=== PATIENT | male | born 1960 | race Caucasian/White ===

== ENCOUNTER 2021-04-06 15:49 | Observation (INO) ==
[2021-04-06] MEDS ORDERED: SODIUM CHLORIDE 0.9% 1000ML 1,000 ML IV ONE ×2 (15:58→16:44)
--- NOTE | 2021-04-06 16:02 | Emergency Department Note ---
Impression & Plan Atrial fibrillation with rapid ventricular response, 2019 novel coronavirus- infected pneumonia (NCIP), ACACIA (acute kidney injury), Acute dehydration, Hypokalemia, Diarrhea ED Provider Note NAME: EDMAR HINOJOSA AGE: 60 SEX: M : 1960 ARRIVES VIA: Ambulance INFORMANT: Patient, ED PROVIDER(S): Josh Beasley DO CHIEF COMPLAINT: Shortness of breath HPI: The patient is a 60-year-old male who presented to the emergency department for an evaluation of shortness of breath. The patient was diagnosed with COVID- 19 9 days ago. He states his symptoms started 10 days ago. He started having cough and fever. He has been taking [id number] medication with only minimal relief of his symptoms. He does have a pulse ox at home that he has been monitoring his pulse ox with. This was noted to be low today and was reportedly in the 80s. The patient states he has very severe symptoms with any exertion. He denies having any nausea or vomiting but has had loose bowel movements. He denies having any rectal bleeding or black bowel movements. He denies having any abdominal pain. He does complain of muscle pain including back pain and leg pain. He also complains of a headache. His is also at home with similar symptoms. He was vaccinated against COVID-19 in the spring. He was not seen by his primary care physician. His symptoms became significantly worse so he presented to the emergency department. Prior to arrival he was noted to have significant tachycardia as well as diaphoresis. ROS: See above HPI for pertinent positives & negatives. A total of 10 systems reviewed and were otherwise negative. PAST MEDICAL HISTORY: See Below PAST SURGICAL HISTORY: See Below FAMILY HISTORY: See Below SOCIAL HISTORY: See Below HOME MEDICATIONS: See Below ALLERGIES: See Below VITALS: See Below PHYSICAL EXAMINATION: GENERAL: Patient is awake and alert. The patient somewhat anxious appearing. He is diaphoretic. EYES: The conjunctivae are clear. The pupils are round and reactive. EARS, NOSE, MOUTH AND THROAT: The nose is without any evidence of any deformity. NECK: The neck is nontender and supple. RESPIRATORY: Shallow respirations were noted. There was no conversational dy spnea. CARDIOVASCULAR: Tachycardic rate with regular rhythm was noted. There was no definite murmur. GASTROINTESTINAL: The abdomen is soft. Abdomen is nontender. MUSCULOSKELETAL/EXTREMITIES: There is no evidence of gross deformity full range of motion is noted in the hips and shoulders. SKIN: Skin was cool and diaphoretic. There was no significant pedal edema. NEUROLOGIC: Patient is awake alert and oriented x3. MEDICAL DECISION MAKING: The patient is a 60-year-old male who presented to the emergency department for an evaluation of difficulty breathing. The patient was recently diagnosed with COVID-19. Over the course the last few weeks he has had diarrhea and decreased p.o. intake. The patient was brought to the emergency department by ambulance. The patient was having rapid atrial fibrillation. The patient was treated with IV fluids in the emergency department. He was nonhypoxic on room air. Atrial fibrillation would be a new diagnosis for this patient. I discussed the patient's laboratory and radiographic studies with him. He was also treated with potassium replacement. Because of his findings [facility] have agreed to evaluate the patient in the emergency department for further management and disposition. Triage Nursing notes reviewed. Prior medical records reviewed Vital Signs: reviewed and remarkable for no significant abnormalities Differential diagnosis: Reactive airway disease, pneumonia, pneumothorax, COPD, CHF, infections, cardiac ischemia, pulmonary embolism, musculoskeletal, gastrointestinal, as well as other pathologies. ER treatment provided: See below Diagnostics interpreted by me: ECG: EKG was obtained in the emergency department. My interpretation is atrial fibrillation at 110 bpm. PVCs were noted. There was no acute ST segment abnormalities noted. This was compared to a tracing from January 102014. Atrial fibrillation has replaced sinus rhythm. A second EKG was obtained in the emergency department. My interpretation is atrial fibrillation at 124 bpm. PVCs were noted. There was no significant change compared to the earlier tracing. Cardiac Monitoring: An order was placed for continuous cardiac monitoring. The monitor shows a rate of 73 bpm with atrial fibrillation rhythm. Laboratory studies: As stated above and show below. Imaging studies: See below Consultation(s): [id number]: I discussed this case with Dr. Etienne who [facility]. Past Med/Surg History Medical History CAD (coronary artery disease) OTHER THAN NSTEMI IN 12/2013 THIS IS NONOBSTRUCTIVE AND CLINICALLY STABLE WITHOUT ANGINA. History of anesthesia reaction during nerve block for L shoulder sx "something went wrong and they got my vocal cords and I couldnt talk for 3 days" Hypertension Myocardial Infarction NSTEMI - 01/24/14 On anticoagulant therapy plavix daily Surgical History History of appendectomy History of cardiac cath 2013 with stent--JONO to the LAD (01/24/14) - FOLLOWS W/ DR. MONDRAGON History of cholecystectomy History of esophagogastroduodenoscopy (EGD) History of repair of left rotator cuff Family History Father Abdominal aortic aneurysm Cardiac disorder Hypertension Myocardial infarction Aunt Breast cancer Other No family history of adverse response to anesthesia Denies family history of Ovarian cancer Prostate cancer Colorectal cancer Social History Smoking Status: Unknown if ever smoked Second Hand Exposure: Yes (father smoked); Hx Alcohol Use: Yes Alcohol type: beer Hx Substance Use: No Preferred Language: Irish Communication Ability: Effective Membership Solicitor Required: No Beliefs That Will Affect Care: None Current Living Situation: Spouse Feels Safe at Home: Yes Assistive Devices: None Allergies Allergies Allergy/AdvReac Type Severity Reaction Status Date / Time No Known Allergies Allergy Verified 04/06/21 17:25 Home Meds Home Medications Medication Instructions Recorded Confirmed acetaminophen 500 mg tablet 1,000 mg PO Q6H PRN 08/18/18 04/06/21 (Tylenol Extra Strength) atorvastatin 80 mg tablet 80 mg PO QAM 08/18/18 04/06/21 clopidogrel 75 mg tablet 75 mg PO QAM 08/18/18 04/06/21 metoprolol succinate 25 mg 25 mg PO QAM 08/18/18 04/06/21 tablet,extended release 24 hr ezetimibe 10 mg tablet (Zetia) 10 mg PO DAILY 12/24/19 04/06/21 aspirin 81 mg tablet,delayed 81 mg PO DAILY 04/06/21 04/06/21 release Previous Rx's Medication Instructions Recorded lisinopril 20 1 tab PO DAILY #30 tab 09/24/20 mg-hydrochlorothiazide 25 mg tablet Results & Data (ED) Vital Signs Vital Signs - 24 hr 04/06/21 16:23 04/06/21 17:30 04/06/21 17:43 Temperature 36.9 C 36.9 C Temperature Source Oral Oral Pulse Rate 113 H Pulse Rate [Left Finger] 113 H 95 H Pulse Rate from SpO2 Sensor Pulse Rhythm [Left Finger] Regular Pulse Strength [Left Finger] Normal Respiratory Rate 20 20 19 Respiratory Effort / Characteristics Non-Labored Non-Labored Non-Labored Respiratory Depth Normal Normal Respiratory Pattern Regular Blood Pressure 94/65 L 89/57 L Blood Pressure [Right Arm] 94/65 L 94/65 L Blood Pressure Mean 74 67 Blood Pressure Mean [Right Arm] 74 74 Blood Pressure Position Lying Blood Pressure Position [Right Arm] Lying Pulse Oximetry 95 95 95 Oxygen Delivery Method Room Air Room Air Room Air Oxygen Flow Rate 95 Sepsis Recent Fever Within 48 Hours Yes Sepsis New/Unexplained Change in Mental Status No Sepsis Action Taken by Nursing Physician Notified 04/06/21 17:45 04/06/21 18:00 04/06/21 18:15 Temperature Temperature Source Pulse Rate 92 H 90 Pulse Rate [Left Finger] Pulse Rate from SpO2 Sensor 88 97 H 95 H Pulse Rhythm [Left Finger] Pulse Strength [Left Finger] Respiratory Rate 20 22 24 Respiratory Effort / Characteristics Non-Labored Respiratory Depth Respiratory Pattern Blood Pressure Blood Pressure [Right Arm] Blood Pressure Mean Blood Pressure Mean [Right Arm] Blood Pressure Position Blood Pressure Position [Right Arm] Pulse Oximetry 97 91 98 Oxygen Delivery Method Room Air Oxygen Flow Rate Sepsis Recent Fever Within 48 Hours Sepsis New/Unexplained Change in Mental Status Sepsis Action Taken by Nursing 04/06/21 18:30 04/06/21 18:45 04/06/21 19:00 Temperature Temperature Source Pulse Rate 84 89 89 Pulse Rate [Left Finger] Pulse Rate from SpO2 Sensor 82 94 H 94 H Pulse Rhythm [Left Finger] Pulse Strength [Left Finger] Respiratory Rate 21 25 H 25 H Respiratory Effort / Characteristics Respiratory Depth Respiratory Pattern Blood Pressure 123/65 Blood Pressure [Right Arm] Blood Pressure Mean 84 Blood Pressure Mean [Right Arm] Blood Pressure Position Blood Pressure Position [Right Arm] Pulse Oximetry 95 98 95 Oxygen Delivery Method Oxygen Flow Rate Sepsis Recent Fever Within 48 Hours Sepsis New/Unexplained Change in Mental Status Sepsis Action Taken by Nursing 04/06/21 19:15 04/06/21 19:30 04/06/21 19:45 Temperature Temperature Source Pulse Rate 132 H 106 H 95 H Pulse Rate [Left Finger] Pulse Rate from SpO2 Sensor 92 H 99 H 91 H Pulse Rhythm [Left Finger] Pulse Strength [Left Finger] Respiratory Rate 29 H 23 19 Respiratory Effort / Characteristics Respiratory Depth Respiratory Pattern Blood Pressure Blood Pressure [Right Arm] Blood Pressure Mean Blood Pressure Mean [Right Arm] Blood Pressure Position Blood Pressure Position [Right Arm] Pulse Oximetry 94 96 95 Oxygen Delivery Method Oxygen Flow Rate Sepsis Recent Fever Within 48 Hours Sepsis New/Unexplained Change in Mental Status Sepsis Action Taken by Nursing 04/06/21 21:00 04/06/21 21:04 04/06/21 21:15 Temperature Temperature Source Pulse Rate 83 73 Pulse Rate [Left Finger] Pulse Rate from SpO2 Sensor 80 77 Pulse Rhythm [Left Finger] Pulse Strength [Left Finger] Respiratory Rate 26 H Respiratory Effort / Characteristics Non-Labored Respiratory Depth Respiratory Pattern Blood Pressure 112/60 Blood Pressure [Right Arm] Blood Pressure Mean 77 Blood Pressure Mean [Right Arm] Blood Pressure Position Blood Pressure Position [Right Arm] Pulse Oximetry 95 96 96 Oxygen Delivery Method Room Air Oxygen Flow Rate Sepsis Recent Fever Within 48 Hours Sepsis New/Unexplained Change in Mental Status Sepsis Action Taken by Care Home Medications Current Medication List: was personally reviewed by me Laboratory Data Attestation: I reviewed the patient's lab results. Result diagrams: 04/06/21 16:05 04/06/21 16:05 Lab Results 04/06/21 04/06/21 04/06/21 Range/Units 15:50 15:50 16:05 WBC 11.73 H (4.8-10.8) K/uL RBC 6.24 H (4.7-6.1) M/uL Hgb 18.2 H (14.0-18.0) g/dL Hct 51.0 (42-52) % MCV 81.7 (80-100) fL MCH 29.2 (25-34) pg MCHC 35.7 (32-36) g/dL RDW Std Deviation 40.8 (36.4-46.3) fL RDW Coeff of Akanksha 13.7 (11.5-14.5) % Plt Count 303 (130-400) K/uL MPV 12.2 H (7.4-10.4) fL Immature Gran % (Auto) 0.3 % Neut % (Auto) 81.1 % Lymph % (Auto) 10.1 % [place] % (Auto) 8.1 % Eos % (Auto) 0.3 % Baso % (Auto) 0.1 % Neut # (Auto) 9.51 H (1.4-6.5) K/uL Lymph # (Auto) 1.18 L (1.2-3.4) K/uL [place] # (Auto) 0.95 H (0.11-0.59) K/uL Eos # (Auto) 0.04 (0-0.5) K/uL Baso # (Auto) 0.01 (0-0.2) K/uL Immature Gran # (Auto) 0.04 H (0.00-0.02) K/uL PT (9.0-12.0) Seconds INR (0.9-1.1) APTT (21.0-31.0) Seconds PTT Ratio D-Dimer (0-500) ug/L FEU Sodium (136-145) mmol/L Potassium (3.5-5.1) mmol/L Chloride (98-107) mmol/L Carbon Dioxide (21-32) mmol/L Anion Gap (3-11) BUN (7-18) mg/dl Creatinine (0.6-1.4) mg/dl Est Cr Clr Drug Dosing ml/min Est GFR ( Amer) ml/min Est GFR (Non-Af Amer) ml/min BUN/Creatinine Ratio (10-20) Glucose (70-99) mg/dl Lactate (0.4-2.0) mmol/L Calcium (8.5-10.1) mg/dl Magnesium (1.8-2.4) mg/dl Total Bilirubin (0.2-1) mg/dl AST (15-37) U/L ALT (12-78) U/L Alkaline Phosphatase (45-117) U/L Troponin I (0-0.045) ng/ml Total Protein (6.4-8.2) gm/dl Albumin (3.4-5.0) gm/dl Globulin (2.5-4.0) gm/dl Albumin/Globulin Ratio (0.9-2) Procalcitonin (0-0.5) ng/ml Urine Color Urine Appearance (Clear) Urine pH (4.5-7.5) Ur Specific [place] (1.000-1.030) Urine Protein (Negative) Urine Glucose (UA) (Negative) Urine Ketones (Negative) Urine Blood (Negative) Urine Nitrite (Negative) Urine Bilirubin (Negative) Urine Urobilinogen (Negative) Ur Leukocyte Esterase (Negative) COVID-19 Eval Order Covid19 at [facility] SARS-CoV-2 (PCR) POSITIVE A* (Negative) 04/06/21 04/06/21 04/06/21 Range/Units 16:05 16:05 16:05 WBC (4.8-10.8) K/uL RBC (4.7-6.1) M/uL Hgb (14.0-18.0) g/dL Hct (42-52) % MCV (80-100) fL MCH (25-34) pg MCHC (32-36) g/dL RDW Std Deviation (36.4-46.3) fL RDW Coeff of Akanksha (11.5-14.5) % Plt Count (130-400) K/uL MPV (7.4-10.4) fL Immature Gran % (Auto) % Neut % (Auto) % Lymph % (Auto) % [place] % (Auto) % Eos % (Auto) % Baso % (Auto) % Neut # (Auto) (1.4-6.5) K/uL Lymph # (Auto) (1.2-3.4) K/uL [place] # (Auto) (0.11-0.59) K/uL Eos # (Auto) (0-0.5) K/uL Baso # (Auto) (0-0.2) K/uL Immature Gran # (Auto) (0.00-0.02) K/uL PT 10.5 (9.0-12.0) Seconds INR 1.0 (0.9-1.1) APTT 26.5 (21.0-31.0) Seconds PTT Ratio 1.0 D-Dimer 970 H* (0-500) ug/L FEU Sodium 134 L (136-145) mmol/L Potassium 2.9 L (3.5-5.1) mmol/L Chloride 98 (98-107) mmol/L Carbon Dioxide 22 (21-32) mmol/L Anion Gap 14.0 H (3-11) BUN 31 H (7-18) mg/dl Creatinine 1.65 H (0.6-1.4) mg/dl Est Cr Clr Drug Dosing 53.4 ml/min Est GFR ( Amer) 51.5 ml/min Est GFR (Non-Af Amer) 44.5 ml/min BUN/Creatinine Ratio 19.0 (10-20) Glucose 129 H (70-99) mg/dl Lactate (0.4-2.0) mmol/L Calcium 8.8 (8.5-10.1) mg/dl Magnesium 2.2 (1.8-2.4) mg/dl Total Bilirubin 1.6 H (0.2-1) mg/dl AST 30 (15-37) U/L ALT 57 (12-78) U/L Alkaline Phosphatase 114 (45-117) U/L Troponin I < 0.015 (0-0.045) ng/ml Total Protein 8.0 (6.4-8.2) gm/dl Albumin 3.6 (3.4-5.0) gm/dl Globulin 4.4 H (2.5-4.0) gm/dl Albumin/Globulin Ratio 0.8 L (0.9-2) Procalcitonin < 0.05 (0-0.5) ng/ml Urine Color Urine Appearance (Clear) Urine pH (4.5-7.5) Ur Specific [place] (1.000-1.030) Urine Protein (Negative) Urine Glucose (UA) (Negative) Urine Ketones (Negative) Urine Blood (Negative) Urine Nitrite (Negative) Urine Bilirubin (Negative) Urine Urobilinogen (Negative) Ur Leukocyte Esterase (Negative) COVID-19 Eval Order SARS-CoV-2 (PCR) (Negative) 04/06/21 04/06/21 04/06/21 Range/Units 16:29 18:21 21:09 WBC (4.8-10.8) K/uL RBC (4.7-6.1) M/uL Hgb (14.0-18.0) g/dL Hct (42-52) % MCV (80-100) fL MCH (25-34) pg MCHC (32-36) g/dL RDW Std Deviation (36.4-46.3) fL RDW Coeff of Akanksha (11.5-14.5) % Plt Count (130-400) K/uL MPV (7.4-10.4) fL Immature Gran % (Auto) % Neut % (Auto) % Lymph % (Auto) % [place] % (Auto) % Eos % (Auto) % Baso % (Auto) % Neut # (Auto) (1.4-6.5) K/uL Lymph # (Auto) (1.2-3.4) K/uL [place] # (Auto) (0.11-0.59) K/uL Eos # (Auto) (0-0.5) K/uL Baso # (Auto) (0-0.2) K/uL Immature Gran # (Auto) (0.00-0.02) K/uL PT (9.0-12.0) Seconds INR (0.9-1.1) APTT (21.0-31.0) Seconds PTT Ratio D-Dimer (0-500) ug/L FEU Sodium (136-145) mmol/L Potassium (3.5-5.1) mmol/L Chloride (98-107) mmol/L Carbon Dioxide (21-32) mmol/L Anion Gap (3-11) BUN (7-18) mg/dl Creatinine (0.6-1.4) mg/dl Est Cr Clr Drug Dosing ml/min Est GFR ( Amer) ml/min Est GFR (Non-Af Amer) ml/min BUN/Creatinine Ratio (10-20) Glucose (70-99) mg/dl Lactate 2.3 H* 1.3 (0.4-2.0) mmol/L Calcium (8.5-10.1) mg/dl Magnesium (1.8-2.4) mg/dl Total Bilirubin (0.2-1) mg/dl AST (15-37) U/L ALT (12-78) U/L Alkaline Phosphatase (45-117) U/L Troponin I (0-0.045) ng/ml Total Protein (6.4-8.2) gm/dl Albumin (3.4-5.0) gm/dl Globulin (2.5-4.0) gm/dl Albumin/Globulin Ratio (0.9-2) Procalcitonin (0-0.5) ng/ml Urine Color Yellow Urine Appearance Clear (Clear) Urine pH 5.5 (4.5-7.5) Ur Specific [place] 1.012 (1.000-1.030) Urine Protein Negative (Negative) Urine Glucose (UA) Negative (Negative) Urine Ketones Trace H (Negative) Urine Blood Negative (Negative) Urine Nitrite Negative (Negative) Urine Bilirubin Negative (Negative) Urine Urobilinogen Negative (Negative) Ur Leukocyte Esterase Negative (Negative) COVID-19 Eval Order SARS-CoV-2 (PCR) (Negative) Administered Medications Discontinued Medications Sodium Chloride (Nss 1000ml) 1,000 mls @ 999 mls/hr IV .Q1H1M ONE Stop: 04/06/21 16:58 Last Infusion: 04/06/21 17:27 Dose: 0 mls/hr Documented by: [id number] Admin: 04/06/21 15:45 Dose: 999 mls/hr Documented by: [id number] Sodium Chloride (Nss 1000ml) 1,000 mls @ 999 mls/hr IV .Q1H1M ONE Stop: 04/06/21 17:44 Last Infusion: 04/06/21 18:40 Dose: 0 mls/hr Documented by: [id number] Admin: 04/06/21 17:30 Dose: 999 mls/hr Documented by: [id number] Potassium Chloride (K Won / Wtr) 10 meq in 100 mls @ 100 mls/hr IV Q1H RADHA Stop: 04/06/21 19:44 Last Admin: 04/06/21 19:04 Dose: Not Given Documented by: [id number] Admin: 04/06/21 18:02 Dose: 100 mls/hr Documented by: [id number] Potassium Chloride (Potassium Chloride 10 Meq Tabcr) 20 meq PO NOW STA Stop: 04/06/21 17:35 Last Admin: 04/06/21 17:59 Dose: 20 meq Documented by: [id number] Potassium Chloride (Potassium Chloride Crtab 20 Meq Tabcr) 40 meq PO NOW STA Stop: 04/06/21 19:13 Last Admin: 04/06/21 19:31 Dose: 40 meq Documented by: [id number] Imaging Data Radiologist's Impression: Chest X-Ray 04/06/21 15:58 SINGLE VIEW CHEST CLINICAL HISTORY: Sepsis. FINDINGS: An AP, portable, upright chest radiograph is compared to study dated 01/10/2015 and correlated with chest CT dated 07/04/2007. The cardiomediastinal silhouette is unremarkable. Subtle airspace opacities are seen in the left mid to lower lung. No large pleural effusion or pneumothorax Is seen. The bony thorax is grossly intact. Postoperative change is noted in the left humeral head. IMPRESSION: Subtle airspace opacities are seen in the left mid to lower lung. Correlate clinically for evidence of a mild infectious/inflammatory pneumonitis. ACT 112: Negative or not required by law. Electronically signed by: Juan Luis Palmer M.D. 04/06/2021 4:51 PM Discharge Plan Visit Data Chief Complaint: Shortness of Breath/Dyspnea Stated Complaint: ILLNESS ED Provider: Josh Beasley Discharge Problem: Atrial fibrillation with rapid ventricular response, 2019 novel coronavirus- infected pneumonia (NCIP), ACACIA (acute kidney injury), Acute dehydration, Hypokalemia, Diarrhea Patient Disposition: Being Evaluated by Hospitalist Forms Stand Alone Forms: [facility] Prescriptions Prescriptions: No Action ezetimibe [Zetia] 10 mg tablet 10 mg PO DAILY RF: 0 lisinopril-hydrochlorothiazide 20-25 mg tablet 1 tab PO DAILY Qty: 30 RF: 6 atorvastatin 80 mg Tablet 80 mg PO QAM RF: 0 clopidogrel 75 mg Tablet 75 mg PO QAM RF: 0 metoprolol succinate 25 mg Tablet Extended Release 24 Hr 25 mg PO QAM RF: 0 acetaminophen [Tylenol Extra Strength] 500 mg Tablet 1,000 mg PO Q6H PRN (Reason: Pain) RF: 0 aspirin 81 mg Tablet,Delayed Release (Dr/Ec) 81 mg PO DAILY RF: 0 Referrals Referrals: Emigdio Longoria MD [Primary Care Provider] -
[2021-04-06 16:17] LABS: Basophils # (auto) 0.01 K/uL (0-0.2); Basophils % (auto) 0.1 %; Eosinophils # (auto) 0.04 K/uL (0-0.5); Eosinophils % (auto) 0.3 %; Hemoglobin 18.2 g/dL (14.0-18.0); Immature Granulocytes # (auto) 0.04 K/uL (0.00-0.02); Immature Granulocytes % (auto) 0.3 %; Lymphocytes # (auto) 1.18 K/uL (1.2-3.4); Lymphocytes % (auto) 10.1 %; Mean Corpuscular Hemoglobin 29.2 pg (25-34); Mean Corpuscular Hgb Conc 35.7 g/dL (32-36); Mean Corpuscular Volume 81.7 fL (80-100); Mean Platelet Volume 12.2 fL (7.4-10.4); Monocytes # (auto) 0.95 K/uL (0.11-0.59); Monocytes % (auto) 8.1 %; Neutrophils # (auto) 9.51 K/uL (1.4-6.5); Neutrophils % (auto) 81.1 %; Platelet Count 303 K/uL (130-400); RDW Coefficient of Variation 13.7 % (11.5-14.5); RDW Standard Deviation 40.8 fL (36.4-46.3); Red Blood Count 6.24 M/uL (4.7-6.1); White Blood Count 11.73 K/uL (4.8-10.8)
[2021-04-06 16:36] LABS: Partial Thromboplastin Time 26.5 Seconds (21.0-31.0); Prothrombin Time 10.5 Seconds (9.0-12.0)
[2021-04-06 16:42] LABS: Alanine Aminotransferase 57 U/L (12-78); Albumin Level 3.6 gm/dl (3.4-5.0); Aspartate Aminotransferase 30 U/L (15-37); Blood Urea Nitrogen 31 mg/dl (7-18); Calcium 8.8 mg/dl (8.5-10.1); Carbon Dioxide 22 mmol/L (21-32); Chloride 98 mmol/L (98-107); Creatinine Clr Calc Pharmacy 53.4 ml/min; Est GFR (African American) 51.5 ml/min; Est GFR (Non-African American) 44.5 ml/min; Glucose 129 mg/dl (70-99); Magnesium 2.2 mg/dl (1.8-2.4); Potassium 2.9 mmol/L (3.5-5.1); Sodium 134 mmol/L (136-145)
[2021-04-06 16:43] LABS: D Dimer 970 ug/L FEU (0-500)
[2021-04-06 16:46] LABS: Albumin Globulin Ratio 0.8 (0.9-2); Alkaline Phosphatase 114 U/L (45-117); Bilirubin,Total 1.6 mg/dl (0.2-1); Globulin 4.4 gm/dl (2.5-4.0); Troponin I < 0.015 ng/ml (0-0.045)
--- NOTE | 2021-04-06 16:53 | XRay Report ---
SINGLE VIEW CHEST CLINICAL HISTORY: Sepsis. FINDINGS: An AP, portable, upright chest radiograph is compared to study dated 01/10/2015 and correlat ed with chest CT dated 07/04/2007. The cardiomediastinal silhouette is unremarkable. Subtle airspace op acities are seen in the left mid to lower lung. No large pleural effusion or pneumothorax Is seen. Th e bony thorax is grossly intact. Postoperative change is noted in the left humeral head. IMPRESSION: Subtle airspace opacities are seen in the left mid to lower lung. Correlate clinically fo r evidence of a mild infectious/inflammatory pneumonitis. ACT 112: Negative or not required by law. Electronically signed by: Juan Luis Palmer M.D. 04/06/2021 4:51 PM
[2021-04-06] MEDS ORDERED: POTASSIUM CHLORIDE 10 MEQ TABCR PO STA (17:34)
[2021-04-06] MEDS: POTASSIUM CHLORIDE / WTR 10 MEQ/100 ML PLCT IV SCH ×2 (18:02→19:04)
--- NOTE | 2021-04-06 19:09 | History & Physical Report ---
Date of Service April 06, 2021 Assessment & Plan (1) 2019 novel coronavirus-infected pneumonia (NCIP): Plan: Likely underlying pathology for patient's general illness and other issues described above No indication for steroid treatment patient is not hypoxic Out of window for remdesivir treatment Supportive care as detailed below (2) Atrial fibrillation with rapid ventricular response: Plan: This is new finding for the patient Patient has a [id number] score of 1, does not require full dose anticoagulation at this time. Will give DVT prophylaxis with heparin Is rate controlled in the 90s, continue to monitor Check 2D echo We will ask cardiology to evaluate for further recommendations (3) Acute dehydration: Plan: Patient was given 2 L and normal saline in the ER, will continue this for now with NS +20 KCl Monitor creatinine and hemoglobin, both elevated likely secondary to the above (4) ACACIA (acute kidney injury): Plan: Creatinine is 1.65 which is elevated for this patient, likely secondary to dehydration Continue to monitor with hydration (5) Hypokalemia: Plan: Patient was only able to tolerate half a K rider IV due to the burning He was given oral potassium, will give additional doses along with some potassium and IV fluids Continue to monitor recheck in the morning dose further as needed (6) CAD (coronary artery disease): Plan: Continue outpatient medications as detailed with the exception of lisinopril/hydrochlorothiazide On atorvastatin and Zetia Plavix with low-dose aspirin (7) Hypertension: Plan: Blood pressure medications as noted above History of Present Illness Chief Complaint: General illness Primary Care Provider: Emigdio Longoria MD This is a 60-year-old male with past medical history of hypercholesterolemia, hypertension,, moderate multivessel CAD seen on cath 12/26/2019 that presents today complaining of feeling of general illness. Patient is a decent historian. Patient tells me he was diagnosed with Covid about 10 days ago after coming to contact with family members who are experiencing symptoms. He was tested positive after getting a rapid test of the pharmacy. He had called his physician at that time but was told there was little that can be done as he was not having significant shortness of breath or other symptoms. However, he felt generally unwell. He is extremely weak and had a mild loose cough. He tells me he was having significant fevers and diaphoresis. He was also noticing anorexia and little p.o. intake of both solids and liquids. He felt the symptoms worsening which is what prompted him to seek medical attention today. On evaluation today, he was found to have no respiratory distress and his O2 sat was 99% on room air when I arrived. His other vitals were acceptable with good blood pressure. Of note, patient had atrial fibrillation with a rate in the 90s. He tells me he has no previous history of this. When asked, he denies chest pain, palpitations. Plan is to admit the patient for further treatment of Covid, atrial fibrillation, and dehydration. Allergies Allergy/AdvReac Type Severity Reaction Status Date / Time No Known Allergies Allergy Verified 04/06/21 17:25 Home Medications Medication Instructions Recorded Confirmed Type acetaminophen 500 mg tablet 1,000 mg PO Q6H PRN 08/18/18 04/06/21 History (Tylenol Extra Strength) atorvastatin 80 mg tablet 80 mg PO QAM 08/18/18 04/06/21 History clopidogrel 75 mg tablet 75 mg PO QAM 08/18/18 04/06/21 History metoprolol succinate 25 mg 25 mg PO QAM 08/18/18 04/06/21 History tablet,extended release 24 hr ezetimibe 10 mg tablet (Zetia) 10 mg PO DAILY 12/24/19 04/06/21 History lisinopril 20 1 tab PO DAILY #30 tab 09/24/20 04/06/21 Rx mg-hydrochlorothiazide 25 mg tablet aspirin 81 mg tablet,delayed 81 mg PO DAILY 04/06/21 04/06/21 History release Past Med/Surg History Medical History CAD (coronary artery disease) OTHER THAN NSTEMI IN 12/2013 THIS IS NONOBSTRUCTIVE AND CLINICALLY STABLE WITHOUT ANGINA. History of anesthesia reaction during nerve block for L shoulder sx "something went wrong and they got my vocal cords and I couldnt talk for 3 days" Hypertension Myocardial Infarction NSTEMI - 01/24/14 On anticoagulant therapy plavix daily Surgical History History of appendectomy History of cardiac cath 2013 with stent--JONO to the [facility]AD (01/24/14) - FOLLOWS W/ DR. KOPINSKI History of cholecystectomy History of esophagogastroduodenoscopy (EGD) History of repair of left rotator cuff Family History Father Abdominal aortic aneurysm Cardiac disorder Hypertension Myocardial infarction Aunt Breast cancer Other No family history of adverse response to anesthesia Denies family history of Ovarian cancer Prostate cancer Colorectal cancer Social History Smoking Status: Unknown if ever smoked Second Hand Exposure: Yes (father smoked); Hx Alcohol Use: Yes Alcohol type: beer Hx Substance Use: No Preferred Language: Faroese Communication Ability: Effective Carpenter Railcar Required: No Beliefs That Will Affect Care: None Current Living Situation: Spouse Feels Safe at Home: Yes Assistive Devices: None Review of Systems Constitutional: + fever, + chills, + malaise, + weakness and + anorexia; no weight loss and no weight gain Eyes: as per Subjective / HPI Respiratory: + cough and + chest congestion; no dyspnea, no dyspnea on exertion, no hemoptysis and no wheezing Cardiovascular: no chest pain, no orthopnea, no palpitations, no lightheadedness and no edema Gastrointestinal: no abdominal pain, no nausea, no vomiting, no constipation and no diarrhea/loose stools Musculoskeletal: no back pain, no neck pain, no joint pain, no stiffness and no myalgia Integumentary: no rash Neurologic: no gait abnormality, no unsteadiness, no falls and no generalized weakness Physical Exam Constitutional: + ill appearing, cooperative and + overweight; no acute distress Neck: trachea midline, no thyromegaly Respiratory: normal respiratory effort Auscultation: lungs clear to auscultation bilaterally; no crackles, no rales, no rhonchi and no wheezes Cardiovascular: Rate/Rhythm: regular rate and + irregularly irregular Heart Sounds: normal S1 and normal S2 Gastrointestinal (Abdomen): Inspection/Auscultation: abdomen normal to inspection Percussion/Palpation: abdomen soft; abdomen nontender, no guarding, abdomen not rigid and no hepatosplenomegaly Skin: no rashes, warm and dry Results & Data Results & Data ([facility]) Vital Signs (Past 12 Hours) Vital Signs Temp Pulse Pulse Resp BP BP Pulse Ox 04/06/21 18:00 96 04/06/21 17:43 36.9 C 95 H 19 94/65 L 95 04/06/21 17:30 20 89/57 L 95 04/06/21 16:23 36.9 C 113 H 113 H 20 94/65 L 94/65 L 95 Laboratory Results Laboratory Results WBC 11.73 K/uL (4.8-10.8) H 04/06/21 16:05 RBC 6.24 M/uL (4.7-6.1) H 04/06/21 16:05 Hgb 18.2 g/dL (14.0-18.0) H 04/06/21 16:05 Hct 51.0 % (42-52) 04/06/21 16:05 MCV 81.7 fL (80-100) 04/06/21 16:05 MCH 29.2 pg (25-34) 04/06/21 16:05 MCHC 35.7 g/dL (32-36) 04/06/21 16:05 RDW Std Deviation 40.8 fL (36.4-46.3) 04/06/21 16:05 RDW Coeff of Akanksha 13.7 % (11.5-14.5) 04/06/21 16:05 Plt Count 303 K/uL (130-400) 04/06/21 16:05 MPV 12.2 fL (7.4-10.4) H 04/06/21 16:05 Immature Gran % (Auto) 0.3 % 04/06/21 16:05 Neut % (Auto) 81.1 % 04/06/21 16:05 Lymph % (Auto) 10.1 % 04/06/21 16:05 [place] % (Auto) 8.1 % 04/06/21 16:05 Eos % (Auto) 0.3 % 04/06/21 16:05 Baso % (Auto) 0.1 % 04/06/21 16:05 Neut # (Auto) 9.51 K/uL (1.4-6.5) H 04/06/21 16:05 Lymph # (Auto) 1.18 K/uL (1.2-3.4) L 04/06/21 16:05 [place] # (Auto) 0.95 K/uL (0.11-0.59) H 04/06/21 16:05 Eos # (Auto) 0.04 K/uL (0-0.5) 04/06/21 16:05 Baso # (Auto) 0.01 K/uL (0-0.2) 04/06/21 16:05 Immature Gran # (Auto) 0.04 K/uL (0.00-0.02) H 04/06/21 16:05 PT 10.5 Seconds (9.0-12.0) 04/06/21 16:05 INR 1.0 (0.9-1.1) 04/06/21 16:05 APTT 26.5 Seconds (21.0-31.0) 04/06/21 16:05 PTT Ratio 1.0 04/06/21 16:05 D-Dimer 970 ug/L FEU (0-500) H* 04/06/21 16:05 Sodium 134 mmol/L (136-145) L 04/06/21 16:05 Potassium 2.9 mmol/L (3.5-5.1) L 04/06/21 16:05 Chloride 98 mmol/L (98-107) 04/06/21 16:05 Carbon Dioxide 22 mmol/L (21-32) 04/06/21 16:05 Anion Gap 14.0 (3-11) H 04/06/21 16:05 BUN 31 mg/dl (7-18) H 04/06/21 16:05 Creatinine 1.65 mg/dl (0.6-1.4) H 04/06/21 16:05 Est Cr Clr Drug Dosing 53.4 ml/min 04/06/21 16:05 Est GFR ( Amer) 51.5 ml/min 04/06/21 16:05 Est GFR (Non-Af Amer) 44.5 ml/min 04/06/21 16:05 BUN/Creatinine Ratio 19.0 (10-20) 04/06/21 16:05 Glucose 129 mg/dl (70-99) H 04/06/21 16:05 Lactate 1.3 mmol/L (0.4-2.0) 04/06/21 18:21 Calcium 8.8 mg/dl (8.5-10.1) 04/06/21 16:05 Magnesium 2.2 mg/dl (1.8-2.4) 04/06/21 16:05 Total Bilirubin 1.6 mg/dl (0.2-1) H 04/06/21 16:05 AST 30 U/L (15-37) 04/06/21 16:05 ALT 57 U/L (12-78) 04/06/21 16:05 Alkaline Phosphatase 114 U/L (45-117) 04/06/21 16:05 Troponin I < 0.015 ng/ml (0-0.045) 04/06/21 16:05 Total Protein 8.0 gm/dl (6.4-8.2) 04/06/21 16:05 Albumin 3.6 gm/dl (3.4-5.0) 04/06/21 16:05 Globulin 4.4 gm/dl (2.5-4.0) H 04/06/21 16:05 Albumin/Globulin Ratio 0.8 (0.9-2) L 04/06/21 16:05 Procalcitonin < 0.05 ng/ml (0-0.5) 04/06/21 16:05 COVID-19 Eval Order Covid19 at [facility] 04/06/21 15:50 Impressions Chest X-Ray 04/06/21 15:58 SINGLE VIEW CHEST CLINICAL HISTORY: Sepsis. FINDINGS: An AP, portable, upright chest radiograph is compared to study dated 01/10/2015 and correlated with chest CT dated 07/04/2007. The cardiomediastinal silhouette is unremarkable. Subtle airspace opacities are seen in the left mid to lower lung. No large pleural effusion or pneumothorax Is seen. The bony thorax is grossly intact. Postoperative change is noted in the left humeral head. IMPRESSION: Subtle airspace opacities are seen in the left mid to lower lung. Correlate clinically for evidence of a mild infectious/inflammatory pneumonitis. ACT 112: Negative or not required by law. Electronically signed by: Juan Luis Palmer M.D. 04/06/2021 4:51 PM PG Care Time/CCT Total # of Minutes Spent Total Time Spent with Patient: Total time spent is greater than 50% in coordination of care (as documented) at patient's floor/unit and/or counseling patient: Coding Level of Care Code 05010 Initial Inpt Care Lvl 3 Diagnoses Atrial fibrillation with rapid ventricular response I48.91 Acute dehydration E86.0 ACACIA (acute kidney injury) N17.9 2019 novel coronavirus-infected pneumonia (NCIP) U07.1; J12.82 Hypokalemia E87.6 CAD (coronary artery disease) I25.10 Hypertension I10
[2021-04-06] MEDS ORDERED: POTASSIUM CHLORIDE CRTAB 20 MEQ TABCR PO STA (19:12)
[2021-04-06 21:25] LABS: Appearance Urine Clear (Clear); Bilirubin Urine Negative (Negative); Blood Urine Negative (Negative); Color Urine Yellow; Glucose Urine UA Negative (Negative); Ketones Urine Trace (Negative); Leukocyte Esterase Urine Negative (Negative); Nitrite Urine Negative (Negative); Protein Urine Negative (Negative); Specific Gravity Urine 1.012 (1.000-1.030); Urobilinogen Urine Negative (Negative); pH Urine 5.5 (4.5-7.5)
[2021-04-07] MEDS ORDERED: NSS + 20MEQ KCL 20 MEQ/1,000 ML BAG IV SCH (00:09)
[2021-04-07] MEDS ORDERED: ONDANSETRON INJ 2 MG/ML 2 ML VIAL IV PRN (00:09)
[2021-04-07] MEDS ORDERED: ACETAMINOPHEN 500 MG TAB PO PRN (00:16)
[2021-04-07 01:49] LABS: Basophils # (auto) 0.01 K/uL (0-0.2); Basophils % (auto) 0.1 %; Eosinophils # (auto) 0.05 K/uL (0-0.5); Eosinophils % (auto) 0.6 %; Hematocrit (blood only) 44.1 % (42-52); Hemoglobin 15.8 g/dL (14.0-18.0); Immature Granulocytes # (auto) 0.04 K/uL (0.00-0.02); Immature Granulocytes % (auto) 0.4 %; Lymphocytes # (auto) 1.25 K/uL (1.2-3.4); Mean Corpuscular Hemoglobin 29.4 pg (25-34); Mean Corpuscular Hgb Conc 35.8 g/dL (32-36); Mean Platelet Volume 11.9 fL (7.4-10.4); Monocytes % (auto) 7.8 %; Neutrophils # (auto) 6.89 K/uL (1.4-6.5); Neutrophils % (auto) 77.1 %; Platelet Count 230 K/uL (130-400); RDW Coefficient of Variation 13.7 % (11.5-14.5); RDW Standard Deviation 40.8 fL (36.4-46.3); Red Blood Count 5.38 M/uL (4.7-6.1); White Blood Count 8.94 K/uL (4.8-10.8)
[2021-04-07 02:06] LABS: BUN Creatinine Ratio 21.6 (10-20); Calcium 8.1 mg/dl (8.5-10.1); Creatinine Clr Calc Pharmacy 73.4 ml/min; Est GFR (African American) 75.7 ml/min; Est GFR (Non-African American) 65.3 ml/min; Magnesium 2.3 mg/dl (1.8-2.4); Potassium 3.2 mmol/L (3.5-5.1)
[2021-04-07 02:11] LABS: Troponin I 0.02 ng/ml (0-0.045)
[2021-04-07] MEDS: HEPARIN SOD 5,000 UNIT/0.5 ML VIAL SQ SCH ×2 (02:31→10:26)
[2021-04-07] MEDS ORDERED: EZETIMIBE 10 MG TABLET PO SCH (09:00)
[2021-04-07] MEDS ORDERED: METOPROLOL SUCC 25MG EXT REL TAB PO SCH (09:00)
[2021-04-07] MEDS ORDERED: CLOPIDOGREL BISULFATE 75 MG TAB PO SCH (09:00)
[2021-04-07] MEDS ORDERED: ATORVASTATIN 40 MG TAB PO SCH (09:00)
[2021-04-07] MEDS ORDERED: ASPIRIN 81 MG ECTAB PO SCH (09:00)
[2021-04-07] MEDS ORDERED: POTASSIUM CHLORIDE CRTAB 20 MEQ TABCR PO STA (10:03)
[2021-04-07 12:02] LABS: Estimated Average Glucose 126 mg/dl
--- NOTE | 2021-04-07 15:02 | Electrocardiogram Report ---
Test Reason : Blood Pressure : / mmHG Vent. Rate : 124 BPM Atrial Rate : 326 BPM P-R Int : 000 ms QRS Dur : 070 ms QT Int : 286 ms P-R-T Axes : 000 008 001 degrees QTc Int : 410 ms Atrial fibrillation with rapid ventricular response with premature ventricular or aberrantly conducte d complexes Abnormal ECG When compared with ECG of 10-JAN-2015 18:14, Atrial fibrillation has replaced Sinus rhythm Vent. rate has increased BY 59 BPM Confirmed by Josh Devi ([id number]) on 04/07/2021 3:01:40 PM Referred By: Confirmed By:Josh Devi
--- NOTE | 2021-04-07 20:04 | Discharge Summary ---
Date of Service April 07, 2021 Admission HPI Per Admitting Provider This is a 60-year-old male with past medical history of hypercholesterolemia, hypertension,, moderate multivessel CAD seen on cath 12/26/2019 that presents today complaining of feeling of general illness. Patient is a decent historian. Patient tells me he was diagnosed with Covid about 10 days ago after coming to contact with family members who are experiencing symptoms. He was tested positive after getting a rapid test of the pharmacy. He had called his physician at that time but was told there was little that can be done as he was not having significant shortness of breath or other symptoms. However, he felt generally unwell. He is extremely weak and had a mild loose cough. He tells me he was having significant fevers and diaphoresis. He was also noticing anorexia and little p.o. intake of both solids and liquids. He felt the symptoms worsening which is what prompted him to seek medical attention today. On evaluation today, he was found to have no respiratory distress and his O2 sat was 99% on room air when I arrived. His other vitals were acceptable with good blood pressure. Of note, patient had atrial fibrillation with a rate in the 90s. He tells me he has no previous history of this. When asked, he denies chest pain, palpitations. Plan is to admit the patient for further treatment of Covid, atrial fibrillation, and dehydration. Principal Diagnosis Fatiguelikely from dehydration and new onset A. fib. Recovering from Covid. Discharge Exam In general he is awake and alert pleasant no distress. HEENT normocephalic atraumatic mucous membranes moist. Breathing unlabored no accessory muscle use good effort. Skin shows no rashes no pallor or icterus. Neuro without focal deficits. No conversational dyspnea. Greater than 90+ on room air the entire time we are in the room together. Discharge Data Allergies Allergy/AdvReac Type Severity Reaction Status Date / Time No Known Allergies Allergy Verified 04/06/21 17:25 Consultations 04/06/21 17:35 ED Decision to Admit Stat 04/07/21 10:17 Consult [facility] vocational counselor Routine Hospital Course (1) Atrial fibrillation with rapid ventricular response: New onset A. fib. Rate control obtained very quickly/easily. Stable for homewill escalate dosing of metoprolol, continue to titrate as an outpatient. By my calculation, I score him as a [id number] of 2and after discussion, he agrees with anticoagulation. Discussed with his primary cardiologisthe was okay with Eliquis, continuing aspirin, stopping the Plavix. -TSH sent prior to discharge, returned after discharge slightly low at 0.178. Suspect this is euthyroid sick syndrome, not likely to be hyperthyroid induced Carl lafleur would repeat a TSH along with a free T4 in a few weeks -Due to Covid precautions, reasonable to obtain echocardiogram as an outpatient in the near future -Due to reasonably high pretest probability, recommended sleep study as an outpatient to eval for undiagnosed sleep apnea as part of the root cause of his A. fib. (2) Acute dehydration: -Likely from poor intake either related to feeling lousy from the A. fib, or from Covid. Improved with IV fluids. Able to eat and drinkstable for homerecommended 60 to 80 ounces of fluid intake. (3) ACACIA (acute kidney injury): See aboveessentially the same as for dehydration (4) 2019 novel coronavirus-infected pneumonia (NCIP): Vaccinated, on about day 11 of illness, breathing room air without any real septic appearance. Does not appear to require any specific intervention, nor does he appear high risk for decompensation. (5) Hypokalemia: Supplemented. Outpatient basic metabolic panel (6) CAD (coronary artery disease): Stable, stent was quite a while ago. Adding Eliquis for the A. fib above, there is no compelling need to have him on dual antiplatelets and an anticoagulanttherefore home on aspirin and Eliquis. (7) Hypertension: Home on home meds, with the exception of a slightly escalated dose of his metoprolol Total Time Total Time Spent Total Time Spent (In Minutes): Greater than 30 Discharge Plan Discharge Items Patient Disposition: Home - Self-Care Reason For Visit: COVID, DEHYDRATION, N/O AF Discharge Diagnosis: covid, dehydration, atrial fibrillation (see below) Activity: Resume your previous activity Non-emergency contact: Primary Care Provider and Extractor Operator Helper Call non-emergency contact if: you have any medication questions and your symptoms worsen Follow-up/Referrals: Emigdio Longoria MD [Primary Care Provider] - Diet: Regular and Heart Healthy Addtl Attending Provider Instructions: It really appears that your symptoms were not related to your Covid infection, see below, but rather related to the atrial fibrillation, as well as being dehydrated. Covid infectiontypically what we see is once somebody is as far in as you are (10+ days) if you are not getting sicker by now, it is not very likely to happen. Fortunately her vital signs look great as it relates to Covidyour temperature is normal, your oxygen saturations are normal. Your chest x-ray only shows mild inflammatory changesnothing that really appears to require any specific intervention. As it relates to the Covid infection, I would simply take it easy until you feel back to normal, but no specific intervention appears required. Dehydrationfrom feeling lousy from Covid, you did get dehydrated, your labs suggested you were quite dry. Fortunately this is improved quite a bit with the IV fluids we have given you, and things appear safe to go home. I would mostly recommend making sure you get enough fluids each dayprobably in the range of 60 to 80 ounces of fluids daily (keep track, it is easy to think you are drinking enough and surprise yourself by realizing you are not)and then we can ask Dr. Longoria to repeat labs late this week/early next week to ensure everything is going back to completely normal. Atrial fibrillation -Another reason that you were probably feeling lousy was atrial fibrillationthis is an irregular heart rhythm that can cause her heart to race inappropriately -As we discussed, the top part of your heart is where the electricity gets generated, that electricity goes through the atria, causes the muscles to contract, and then gets filtered to the ventricles through wirings that then make those muscles contract. -With atrial fibrillation, what ends up happening is the electricity does not really go through the wiring in the atria correctly, causing the atria to quiver. As the atria quiver, they "bombard" the ventricles with signals to contractfortunately the AV node ("breaker box that filters the electrical signals") blocks most of the signals, but even then, the ventricles can beat too fast, causing inappropriately fast heart rates, and resting heart rates that might as well be fast enough he would be running on a treadmill. This is also a big reason why you felt fatigued. -With atrial fibrillation, the 2 main goals are generally to keep the rate under controlthis has been easy (we will send you out on a slightly higher dose of your metoprolol that you already take), and prevent strokes (as we discussed, the top part of the heartthe atria1 quivering, allow a stagnant pond to formand and this clots can form. Because it is essentially a straight shot from the left ventricle to the brain, when these clots form they put people at risk for stroke. Doing the math on you, you calculate out to be in the neighborhood of about 2.5% on the yearwhich is not much in any given moment, but over a decade really adds up.) To reduce this risk of stroke, we generally put people on a blood thinner. For youwe have sent a prescription for Eliquis (apixaban) 5 mg twice a day. There are several "good" blood thinners on the market now, if you get to the pharmacy and the Eliquis is needlessly expensive, Dr. Márquez's office can work with prior office, coupon cards, or other medicines to find a way to make blood thinners more affordable. -While I am waiting to hear back from Dr. Márquez, I will work off of the assumption that we will have you stop the Plavix, and just go with the Eliquis and aspirin. If he recommends differently I will let you know. -Of course, when people are on blood thinners, there is a bit of an increased risk of bleedingthe newer blood thinner such as Eliquis have a much reduced risk of bleeding compared to the older blood thinners (Coumadin), but it can still happen. As we discussed, generally it is much easier to fix/stabilize a bleed then to give back brain tissue after a stroke, which makes the decision "no-complex manager" (sorry, but you smiled at that terrible pond when we were talking, so I could not help myself but repeating it). -As a rule for safety, if it is bleeding that you can put pressure on, put pressure on it and then look at the clock. This would pertain to nosebleeds, or if you cut your finger, etc. The reason to put pressure on it and then look at the clock is that most bleeding will respond to 10 minutes of pressure. If it does not, then it might be a nosebleed that needs packed or cauterized, or a cut that needs sutured. This rule also helps keep you safe because of its bleeding that you cannot put pressure on (such as pooping blood or vomiting blood) then you will know that you should go straight to the hospital for further evaluation. ----Because of Covid isolation precautions, we were not able to fully finish the typical work-up for new onset atrial fibrillation while you were here. ------ I have sent lab work for thyroid testing, because overactive thyroid is sometimes a cause for atrial fibrillationI doubt this will be the case with you ------- Dr. Márquez will review your most recent echocardiogram and decide if a new one is warrantedtypically we will do this with new onset atrial fibrillation to look for things like leaky valves, but it is doubtful that that will be the case with you given that that has not been a problem before ------- as we discussed, undiagnosed/untreated sleep apnea is also a fairly common cause for people to have atrial arrhythmia such as A. fibin that respect we will work on setting up a home sleep study to screen for this --"To do" a) lab work (basic metabolic panel) in about a week at Dr. Longoria's office b) follow-up with Dr. Márquez in the next 1 to 2 weeks) we will be working on setting this up, but if you have not heard by the end of the week, please call the office to check your status) c) Home sleep study (much like the cardiology follow-up we will be working on setting this up, but if you do not hear by the end of the week, please call Dr. Longoria's office to ensure this is a "work in progress") d) stay well-hydrated (60 to 80 ounces of fluid daily) Stand-Alone Forms: My [employer], Smoking Cessation Medications and DC Order Prescriptions: New Eliquis 5 mg tablet 5 mg PO BID Qty: 60 RF: 0 metoprolol succinate 25 mg tablet extended release 24 hr 25 mg PO HS Qty: 30 RF: 0 Continued ezetimibe [Zetia] 10 mg tablet 10 mg PO DAILY RF: 0 lisinopril-hydrochlorothiazide 20-25 mg tablet 1 tab PO DAILY Qty: 30 RF: 6 atorvastatin 80 mg Tablet 80 mg PO QAM RF: 0 metoprolol succinate 25 mg Tablet Extended Release 24 Hr 25 mg PO QAM RF: 0 acetaminophen [Tylenol Extra Strength] 500 mg Tablet 1,000 mg PO Q6H PRN (Reason: Pain) RF: 0 aspirin 81 mg Tablet,Delayed Release (Dr/Ec) 81 mg PO DAILY RF: 0 Discontinued clopidogrel 75 mg Tablet 75 mg PO QAM RF: 0 Discharge Orders: Discharge Order (Routine); Ordered 04/07/21 Ordered By: Dawson Cruz Admission Data Admit Date/Time: 04/06/21 19:12 Attending Provider: Dawson Cruz Admit Provider: Davonte Etienne Primary Care Provider: Emigdio Longoria Other Providers: Davonte Etienne Other Interventions: Discharge Summary Assessment (RN) Last Done: 04/07/21 11:04 Coding Level of Care Code D/C DAY MANAGEMENT >30 MINS Diagnoses 2019 novel coronavirus-infected pneumonia (NCIP) U07.1; J12.82 Atrial fibrillation with rapid ventricular response I48.91 Acute dehydration E86.0 ACACIA (acute kidney injury) N17.9 Hypokalemia E87.6 CAD (coronary artery disease) I25.10 Hypertension I10
== END 2021-04-07 11:15 | disposition home or self-care (01) ==
LOC: ED 15:49 → INTOOBSV 19:12 → EDINP 19:12 → SUATTDRO 19:12 → EDINP 23:36

== ENCOUNTER 2024-08-21 05:14 | Observation (INO) ==
--- NOTE | 2024-07-26 14:55 | PAT Medication Instructions ---
Medication Instructions Date of Service July 26, 2024 Home Medications Medication Instructions Recorded lisinopril 20 1 tab PO QAM #90 tabs 09/15/23 mg-hydrochlorothiazide 25 mg tablet apixaban 5 mg tablet (Eliquis) 5 mg PO BID #180 tabs 01/18/24 ezetimibe 10 mg tablet (Zetia) 10 mg PO QAM #90 tabs 03/07/24 acetaminophen 500 mg tablet (Tylenol Extra Strength) 1,000 mg PO Q6H PRN Pain aspirin 81 mg tablet,delayed release 81 mg PO QAM lisinopril 20 mg-hydrochlorothiazide 25 mg tablet 1 tab PO QAM apixaban 5 mg tablet (Eliquis) 5 mg PO BID ezetimibe 10 mg tablet (Zetia) 10 mg PO QAM atorvastatin 80 mg tablet (Lipitor) 80 mg PO QAM metoprolol succinate 50 mg tablet,extended release 24 hr (Toprol XL) 50 mg PO QAM ASK your prescriber and surgeon aspirin 81 mg tablet,delayed release 81 mg PO QAM apixaban 5 mg tablet (Eliquis) 5 mg PO BID (From anesthesia perspective, apixaban/Eliquis needs to be stopped 72 hours/3 days before surgery. Please check if okay with doctor that prescribes this to you) DO NOT take the morning of surgery lisinopril 20 mg-hydrochlorothiazide 25 mg tablet 1 tab PO QAM Take morning of surgery With a small sip of water, OTHERWISE NOTHING TO EAT OR DRINK AFTER MIDNIGHT: acetaminophen 500 mg tablet (Tylenol Extra Strength) 1,000 mg PO Q6H PRN Pain (if needed) ezetimibe 10 mg tablet (Zetia) 10 mg PO QAM atorvastatin 80 mg tablet (Lipitor) 80 mg PO QAM metoprolol succinate 50 mg tablet,extended release 24 hr (Toprol XL) 50 mg PO QAM Take evening before surgery acetaminophen 500 mg tablet (Tylenol Extra Strength) 1,000 mg PO Q6H PRN Pain (if needed) Other Notes If you have any questions please call us at [phone] or [phone] or [phone] or [phone]
--- NOTE | 2024-08-03 09:49 | Anesthesiology Consultation ---
Date of Service August 03, 2024 Assessment & Plan (1) Encounter for pre-operative examination: - Infectious disease screening: Per assessment on 08/03/24- No known recent infectious disease contacts or current infectious disease symptoms. - Outpatient joint assessment: Pt currently scheduled for inpatient pathway. If surgeon requests review for outpatient joint pathway, patient is not recommended candidate for outpatient joint program from anesthesia standpoint based on available information. - S/P Left shoulder arthroscopy, RCR (09/04/18): Grade 4 view with MAC #4. Could not see beyond epiglottis on DVL > changed to Glidescope Grade 1 view with glidescope easy full view, ETT easily passed. - Cardiology visit (05/10/24): "Atrial fibrillation with rapid ventricular response-Persistent post-COVID infection, [id number] 2; on Eliquis.. STEMI 12/2013 with JONO to mid LADModerate nonobstructive CAD 12/2019, 50% mid LAD after stent, 50% ostial RCA.. Not really exercising but with mild to moderate activity no recurrent anginal symptoms. On exam today no signs of heart failure or new PVD. Clinically in sinus rhythm. Blood pressure near goal. Weight up 10 pounds since last seen, 40 pounds over the last 3 years. We discussed goals for continued ASCVD secondary prevention including weight loss.. Follow-up in 6 months" - Apixaban/Eliquis: patient made aware that for neuraxial anesthesia, Apixaban/Eliquis needs to be held 72 hours/3 days prior to surgery. Patient voiced understanding/will check if okay with prescriber. Chart Review Chart Review: Acceptable Risk for Surgery and Patient seen in Pre Admission Testing Teaching & Discussion Pre-Anesthesia Teaching/Discussion Notes: Instructed NPO after midnight before surgery,except medications with 15 cc of water. Medication instructions provided according to the PAT guidelines. History Surgery Operation Date: 08/21/24 12:30 Proposed Procedures p Left Total Knee Arthroplasty - Ankur Padilla MD Height/Weight Height: 5 ft 8 in Weight: 130.5 kg Allergies Allergy/AdvReac Type Severity Reaction Status Date / Time No Known Allergies Allergy Verified 07/26/24 13:28 Medications Home Medications Medication Instructions Recorded Confirmed Last Taken acetaminophen 500 mg tablet 1,000 mg PO Q6H PRN Pain 08/18/18 07/26/2421 12:00 (Tylenol Extra Strength) aspirin 81 mg tablet,delayed 81 mg PO QAM 04/06/21 07/26/24 04/06/21 release lisinopril 20 1 tab PO QAM #90 tabs 09/15/23 07/26/24 Unknown mg-hydrochlorothiazide 25 mg tablet apixaban 5 mg tablet (Eliquis) 5 mg PO BID #180 tabs 01/18/24 07/26/24 Unknown ezetimibe 10 mg tablet (Zetia) 10 mg PO QAM #90 tabs 03/07/24 07/26/24 Unknown atorvastatin 80 mg tablet (Lipitor) 80 mg PO QAM 07/26/24 07/26/24 Unknown metoprolol succinate 50 mg 50 mg PO QAM 07/26/24 07/26/24 Unknown tablet,extended release 24 hr (Toprol XL) Past Medical History Medical History Atrial fibrillation Taking Eliquis Follows with Dr. Márquez CAD (coronary artery disease) x2 stents (2013) [place] [facility] [place] History of COVID-03/2021- diarrhea, body aches, chills, cough, SOB, loss of taste/smell; reports lingering cough - resolved Hx of myocardial infarction 2013 > 2 stents Hypertension Left knee DJD Morbid obesity Osteoarthritis Exercise / Class Metabolic Activity II 4-5 Yardwork/Stairs/Walk up hill (one FS: no CP, no SOB) Past Family History Family History Father Abdominal aortic aneurysm Cardiac disorder Hypertension Myocardial infarction Aunt Breast cancer Other No family history of adverse response to anesthesia Denies family history of Ovarian cancer Prostate cancer Colorectal cancer Past Surgical History Surgical History History of appendectomy History of cardiac cath 2019- no stents 2013 > stents x2 History of cholecystectomy History of esophagogastroduodenoscopy (EGD) History of repair of left rotator cuff Left shoulder arthroscopy, RCR (09/04/18): Grade 4 view with MAC #4. Could not see beyond epiglottis on DVL > changed to Glidescope Grade 1 view with glidescope easy full view, ETT easily passed. S/P coronary artery stent placement x2 (2013) Past Anesthesia History Difficult Airway (Left shoulder arthroscopy, RCR (09/04/18): Grade 4 view with MAC #4. Could not see beyond epiglottis on DVL > changed to Glidescope- Grade 1 view with glidescope- easy full view, ETT easily passed.) and No Family Hx of Anesthesia Complications History of PONV No Hx of PONV and No Hx of Motion Sickness Social History Smoking Status: Never smoker tobacco type: smokeless tobacco Do You Dip or Chew Tobacco: Yes (Daily- Advised none DOS) Hx Alcohol Use: Yes Alcohol type: beer alcohol intake frequency: a few times a month Hx Substance Use: No substance use type: does not use Review of Systems Patient denies chest pain, shortness of breath, dyspnea on exertion, fever, chills, cough, wheezing, palpitations. Physical Exam Vital Signs BP 113/74 P 60 TEMP 98.4 SP02 97%RA RESP 16 Physical Full cervical extension range of motion. Full TMJ range of motion. TMD 3 finger breaths Mallampati Score III, macroglossia Dentition: intact Lungs: clear throughout to auscultation Cardiac: regular rate and rhythm, no murmurs noted Spine: normal Carotid arteries: negative bruit Extremities: no LE edema Short neck Lab Results Anesthesia Preop Results Results Anesthesia Widget: WBC 8.05 K/ul (4.8-10.8) 08/03/24 Hgb 16.1 g/dl (14.0-18.0) 08/03/24 Hct 47.6 % (42.0-52.0) 08/03/24 Plt 234 K/uL (130-400) 08/03/24 Na 138 mmol/L (136-145) 08/03/24 K 3.9 mmol/L (3.5-5.1) 08/03/24 Cl 104 mmol/L (98-107) 08/03/24 CO2 26 mmol/L (21-32) 08/03/24 BUN 16 mg/dl (6-23) 08/03/24 Creat 0.86 mg/dl (0.6-1.4) 08/03/24 Glucose Level 95 mg/dl (70-99(Fasting)) 08/03/24 PT 10.8 Seconds (9.0-12.0) 08/03/24 PTT 28 Seconds (21-31) 08/03/24 INR 1.0 (0.9-1.1) 08/03/24 Blood Type B Positive 08/03/24 Antibody Screen NEGATIVE 08/03/24 Testing Electrocardiogram Date: 08/03/24 SB at 58bpm. Low voltage QRS. No significant change compared to 05/04/2021 per lead sharepoint developer comparison. Chest X-Ray Date: 08/03/24 Findings: + NAD Echocardiogram Date: 04/20/21 EF: 55 to 60% LV Function: normal RWMA: + none Other Findings: + LVH (Mild/concentric) Valvular Disease: + no significant valvular disease Normal LV size. Normal RV size and function. Normal estimated RA and PA pressures. Compared to study from 01/23/2014trial fibrillation/flutter is new. No other significant changes. Cardiac Catheterization Date: 12/26/19 LM -Short, angiographically normal LAD -medium caliber vessel, proximal to mid luminal irregularities, mid segment stent widely patent, 50% hazy stenosis just distal to prior stent. Distal vessel with luminal irregularities and wraps around apex. Medium caliber first diagonal with mild diffuse disease. Second diagonal without significant disease. Circumflex -medium caliber vessel, luminal irregularities. Medium caliber OM 2 with 30% proximal disease. RCA -dominant, large caliber, 50% ostial stenosis. No waveform dampening with catheter engagement. Summary: 1. Moderate multivessel coronary artery disease - Widely patent mid LAD stent - 50-60% mid LAD eccentric stenosis just after prior stent - 50% calcified ostial RCA stenosis (FFR 0.91). Recommend medical management.
--- NOTE | 2024-08-18 11:24 | History & Physical Report ---
Date of Service August 18, 2024 Assessment & Plan (1) Degenerative arthritis of knee, bilateral: 64-year-old gentleman with advanced bilateral knee DJD. The right side is actually worse on x-ray but the left side is bothering him more. He has failed conservative treatment. This is particular respect to the left knee. Plan: We will take him to the operating do a left total knee replacement. The risk and benefits procedure explained. Informed consent was obtained. He is on Eliquis and will need to hold that 3 days preop. I will take his metoprolol with a sip of water in the morning. There is cements with procedure were explained and he understands. Informed consent was obtained. (2) Morbid obesity: (3) Atrial fibrillation: (4) CAD (coronary artery disease): History of Present Illness Chief Complaint: . Bilateral knee pain and discomfort left side greater than the right. Primary Care Provider: Emigdio Longoria MD . The patient is a 64-year-old gentleman who presents for surgical treatment of his knees. He describes pain in both knees. He has been through extensive conservative treatment particular with SPECT of the right knee in the past. The left knee is more more recent onset but bothering him more. He has good and bad days but more bad days anymore. He has difficulty walking on some of these days. Scrotal pain. He limps more as it goes on. Denies any fevers or rashes or tick bites. Allergies Allergy/AdvReac Type Severity Reaction Status Date / Time No Known Allergies Allergy Verified 07/26/24 13:28 Home Medications Medication Instructions Recorded Confirmed Type acetaminophen 500 mg tablet 1,000 mg PO Q6H PRN Pain 08/18/18 07/26/24 History (Tylenol Extra Strength) aspirin 81 mg tablet,delayed 81 mg PO QAM 04/06/21 07/26/24 History release lisinopril 20 1 tab PO QAM #90 tabs 09/15/23 07/26/24 Rx mg-hydrochlorothiazide 25 mg tablet apixaban 5 mg tablet (Eliquis) 5 mg PO BID #180 tabs 01/18/24 07/26/24 Rx ezetimibe 10 mg tablet (Zetia) 10 mg PO QAM #90 tabs 03/07/24 07/26/24 Rx atorvastatin 80 mg tablet (Lipitor) 80 mg PO QAM 07/26/24 07/26/24 History metoprolol succinate 50 mg 50 mg PO QAM 07/26/24 07/26/24 History tablet,extended release 24 hr (Toprol XL) Past Med/Surg History Problem List Degenerative arthritis of knee, bilateral Right knee DJD Atrial fibrillation CAD (coronary artery disease) Encounter for pre-operative examination Hypertension (Chronic) Medical History Morbid obesity Left knee DJD Hypertension Hx of myocardial infarction 2013 > 2 stents CAD (coronary artery disease) x2 stents (2013) Follows with [facility] Atrial fibrillation Taking Eliquis Follows with Dr. Márquez Osteoarthritis History of COVID-19 03/2021- diarrhea, body aches, chills, cough, SOB, loss of taste/smell; reports lingering cough - resolved Surgical History S/P coronary artery stent placement x2 (2013) History of esophagogastroduodenoscopy (EGD) History of repair of left rotator cuff Left shoulder arthroscopy, RCR (09/04/18): Grade 4 view with MAC #4. Could not see beyond epiglottis on DVL > changed to Glidescope Grade 1 view with glidescope easy full view, ETT easily passed. History of appendectomy History of cholecystectomy History of cardiac cath 2019- no stents 2013 > stents x2 Family History Father Abdominal aortic aneurysm Cardiac disorder Hypertension Myocardial infarction Aunt Breast cancer Other No family history of adverse response to anesthesia Denies family history of Ovarian cancer Prostate cancer Colorectal cancer Social History Smoking Status: Never smoker Tobacco Type: Smokeless Tobacco (Dip or Chew) Second Hand Exposure: No; Do You Dip or Chew Tobacco: Yes (Daily- Advised none DOS); Hx Alcohol Use: Yes Alcohol type: beer Hx Substance Use: No Preferred Language: Algerian Communication Ability: Effective Chief Technology Officer Required: No Beliefs That Will Affect Care: None Current Living Situation: Spouse Feels Safe at Home: Yes Assistive Devices: None Review of Systems All systems reviewed & are unremarkable except as noted in HPI & below. Physical Exam . Physical exam reveals a fairly pleasant large middle-age male. Looks in reasonably good health. Examination left knee reveals a patient ambulates independently. He is got varus alignment to his knee with a moderate-sized knee effusion. Range of motion 5-1 20. No instability. No particular pain with hip motion. Examination of the right knee reveals a similar varus deformity. Got bony pressure knee. Small knee effusion. Range of motion 5-1 25. No instability. Constitutional WD/WN, vitals as above Respiratory normal respiratory effort, lungs clear to auscultation Cardiovascular RRR, no murmur, no edema Gastrointestinal (Abdomen) normal bowel sounds, soft, nontender, no hepatosplenomegaly Results & Data Results & Data Laboratory Results . Diagnostic Findings . X-rays of both knees were reviewed. She has advanced knee arthritis primary involving the medial compartment. The right side is a little bit worse radiographically than the left. PG Care Time/CCT Total # of Minutes Spent Total Time Spent with Patient: Total time spent is greater than 50% in coordination of care (as documented) at patient's floor/unit and/or counseling patient: Coding Level of Care Code None Diagnoses Degenerative arthritis of knee, bilateral M17.0 Morbid obesity E66.01 Atrial fibrillation I48.91 CAD (coronary artery disease) I25.10
[2024-08-21] MEDS: LR 500ML BOLUS, THEN 15ML/HR IV SCH (05:54)
[2024-08-21] MEDS: ACETAMINOPHEN 500 MG TAB PO SCH ×2 (05:54→13:42)
[2024-08-21] MEDS: LR 60ML/HR IV SCH (05:54)
[2024-08-21] MEDS: CeleBREX 200 MG CAP PO SCH (05:54)
[2024-08-21] MEDS: FAMOTIDINE 20 MG TAB PO SCH (05:55)
[2024-08-21] MEDS: dexAMETHasone**PF** 10 MG/ML VIAL IV SCH (05:55)
[2024-08-21] MEDS: METOCLOPRAMIDE HCL 10 MG TABLET PO SCH (05:55)
[2024-08-21] MEDS ORDERED: BUPIVACAINE 0.5 % 5 MG/1 ML PF 10ML VIAL ONE (06:22)
[2024-08-21] MEDS ORDERED: BUPIVACAINE 0.25% PF 30 ML VIAL ONE (06:22)
[2024-08-21] MEDS ORDERED: PROPOFOL IV EMULSION 10 MG/ML 20 ML VIAL IV ONE ×3 (06:34→08:15)
[2024-08-21] MEDS ORDERED: ONDANSETRON INJ 2 MG/ML 2 ML VIAL ONE (06:34)
[2024-08-21] MEDS ORDERED: LIDOCAINE 2% 2 ML VIAL/AMP(20MG/ML) INFIL ONE (06:34)
[2024-08-21] MEDS ORDERED: MIDAZOLAM HCL 1 MG/ML 2ML VIAL ONE (06:34)
[2024-08-21] MEDS ORDERED: KETAMINE HCL 10MG/ML SYR ONE (06:34)
[2024-08-21] MEDS ORDERED: GLYCOPYRROLATE 0.2 MG/ML VIAL ONE (06:34)
--- NOTE | 2024-08-21 06:43 | History & Physical Bridge Note ---
Date of Service August 21, 2024 History & Physical Bridge Note I have examined the patient, reviewed the History & Physical and in the interval since the performance of the History & Physical I have noted the following changes of clinical significance: no changes noted
[2024-08-21] MEDS ORDERED: ATROPINE SULFATE 0.1 MG/ML 10ML SYR IV PRN (06:55)
[2024-08-21] MEDS ORDERED: ONDANSETRON INJ 2 MG/ML 2 ML VIAL IV PRN ×2 (06:55→10:24)
[2024-08-21] MEDS ORDERED: PROMETHAZINE HCL 6.25 MG in SODIUM CHLORIDE 0.9% 50 ML IV PRN (06:55)
[2024-08-21] MEDS ORDERED: fentaNYL citrate PF 100 MCG/2 ML VIAL IV PRN (06:55)
[2024-08-21] MEDS ORDERED: ePHEDrine sulfate 50 MG/ML AMP IV PRN (06:55)
[2024-08-21] MEDS: ceFAZolin 3000MG 3,000 MG/72.5 ML BAG IV SCH (07:00)
[2024-08-21] MEDS ORDERED: SODIUM CHLORIDE 0.9% PF INJ 10 ML VIAL ONE (07:06)
[2024-08-21] MEDS ORDERED: ePHEDrine sulfate 50 MG/ML AMP ONE (07:06)
[2024-08-21] MEDS: ORTHO JOINT ANESTHETIC ONE (07:32)
[2024-08-21] MEDS ORDERED: PHENYLEPHRINE 100MCG/ML 5ML SYR ONE (07:36)
[2024-08-21] MEDS: TRANEXAMIC ACID 1,000 MG **IV Intra-op IV SCH (07:50)
[2024-08-21] MEDS: ROPIV 0.5% 246mg, Ketorolac 30mg, EPINEPHrine 0.5mg in NSS INFIL SCH (07:51)
--- NOTE | 2024-08-21 08:51 | Operative Report ---
PG Post Operative Report Pre & Post Diagnosis Operation Date: 08/21/24 07:00 Pre-Op Diagnosis: Degenerative arthritis of knee, Left Post-Op Diagnosis: Degenerative arthritis of knee, Left-likely related to a vast necrosis of the medial femoral condyle I identified the patient and participated in the time-out.: Yes Procedure Operation Date: 08/21/24 07:00 Actual Procedures p Left Total Knee Arthroplasty(Left) - Ankur Padilla MD Surgeon Ankur Padilla MD Manager Product Cristofer Ronquillo PA-C Estimated Blood Loss 50 Findings Consistent with Post-Op Diagnosis Operative findings were advanced left knee medial compartment DJD. He had full- thickness cartilage loss of the medial femoral condyle medial tibial plateau. It did look like he had a significant area of a vast necrosis of the distal femur of the medial femoral condyle. He had a large knee joint effusion. Specimens Left knee sent for pathology. Anesthesia Type Spinal MAC Complications none Disposition Accompanied Patient To Recovery: No Indications Patient is a 64-year-old gentleman has had a history of bilateral knee pain and discomfort that is progressed over time. His right knee was bothering him initially but it has been pretty stable and response to conservative/injection care. The left knee started to bother him more it has been more progressive. X-rays show progressive knee arthritis. He failed conservative measures. He e lected proceed with left total knee arthroplasty. Description of Procedure Operative implants consist of: 1 Biomet Vanguard size 70 left posterior stabilized femoral component. 2. Biomet size 75 tibial tray. 3. 10 mm posterior stabilized polyethylene insert. 4. 31 x 8 all poly patella. The patient was taken the operating, identified, and placed on the operating table in the supine position. All contact areas were appropriately padded. IV antibiotics were provided by the anesthesia team. A left thigh turn was then placed. Left lower extremity was then prepped and draped in the usual sterile fashion. The left leg was elevated and exsanguinated with use of an Esmarch and a turn was placed at 300 mmHg. An anterior approach to the left knee was then performed through a longitudinal incision centered over the patella. Sharp dissection was got through subcutaneous tissue down the extensor mechanism. A medial parapatellar arthrotomy incision was made. Some subperiosteal dissection was carried out medially. The fat pad was resected from the patella tendon. Lateral patellofemoral ligament was released. Patella subluxated laterally and the knee was flexed. The osteophytes taken on distal femur. The ACL PCL then released from the distal femur the tibia subluxated anteriorly. The external tibial alignment exam placed on the interface the tibia and adjusted 14 mm medially. Proximal tibial cut was made remove out of millimeter or 2 of bone from the most efficient aspect medial tibial plateau. Some osteophytes taken off medially. The tibia sized to a size 75. We did try and maximize coverage due to his large stature. Attention drawn the femur. The distal femur was under sharp drill. Intramedullary canal was suction. A left 5 degree valgus cutting guide was placed. This femoral cutting block was pinned in place. Distal femoral cut was made to take an additional 3 mm of bone off distal femur. The femur was then sized to a size 70. The 8 cutting block was pinned parallel to the epicondylar axis which was 4 degrees of external rotation. The anterior cut, anterior chamfer, posterior cut, posterior chamfer cuts were made. The box cutting guide was placed in the just slight lateral and the box cut was made. The knee was flexed. The remnants of the medial and lateral menisci were excised. The osteophytes taken off the posterior aspect the femur. A trial femoral component was placed. The tibial tray was pinned Gretchen external rotation and the drill and stem point to use great defect in proximal tibia for the tibial tray. The knee was then trialed and 10 mm insert fit most appropriately. Attention drawn the patella. The patella was cleaned of all soft tissues. Patella thickness measured 21 mm in thickness it was cut down to 14. Was sized to a size 31 patella. The lug holes were drilled for 31 patella. The lateral osteophytes removed. Patella button was placed. Knee was taken through range of motion and the patella tracked nicely with no thumbs test. Attention then drawn to placing permanent components. Nupathe all trial components were removed. Bone plug was placed into this femur limit blood loss. Double batch Palacos G cement was mixed. A Biomet Vanguard size 70 left posterior Byce femoral component, a size 75 tibial tray, a 10 mm posterior Byce polyethylene insert, and a 31 x 8 all poly patella and then cemented in place. Knee was brought out into full extension till cement hardened. Final cement check was then performed. The pericapsular tissues were injected with total 100 cc of Ortho mix. Patient did receive 1 g tranexamic acid. The tourniquet was then let down for final tourniquet time 58 minutes. Hemostasis surges electrocautery. Extensor Meclomen closed with combination 1 PDS suture #1 Vicryl suture in [id number] fashion. Extensor Meclomen checked found be intact and subcutaneous tissue then closed with 2 Dexon suture in a buried interrupted fashion skin was closed skin jania. Leg was then cleaned and dried and a sterile dressing with Xeroform, 4 fours, sterile cast padding, Arslan bandage were applied. Patient then transferred to the recovery room in stable condition. Patient tolerated procedure well and there were no complications. Cristofer Ronquillo, my physician carpenter assistant installer, was present for the entire procedure. His assistance was essential and required for appropriate patient positioning, prepping and draping, surgical exposure, performing the technical details of the operation, placement the implants, closure of the wound, and placement of the sterile bandage. I attest to the content of the Intraoperative Record and any orders documented therein. Any exceptions are noted below.
--- NOTE | 2024-08-21 09:24 | XRay Report ---
XR knee LT 1 or 2V routine CLINICAL HISTORY: Surgical Post Op COMPARISON: None FINDINGS: Left knee prosthesis shows no hardware complication. There is expected soft tissue gas. Sk in jania are present. IMPRESSION: Unremarkable postoperative exam. ACT 112: Negative or not required by law. Electronically signed by: Bryn Barr M.D. 08/21/2024 9:23 AM
[2024-08-21] MEDS ORDERED: NALOXONE HCL 0.4 MG/1 ML VIAL/CARP IV PRN (10:24)
[2024-08-21] MEDS ORDERED: SENNA 8.6 MG TAB PO SCH (10:24)
[2024-08-21] MEDS ORDERED: MAGNESIUM HYDROXIDE SUSP 30 ML UDC PO PRN (10:24)
[2024-08-21] MEDS ORDERED: METOCLOPRAMIDE HCL INJ 5 MG/ML 2 ML VIAL IV PRN (10:24)
[2024-08-21] MEDS ORDERED: ALUMINUM/MAGNESIUM SUSP 30 ML UDC PO PRN (10:24)
[2024-08-21] MEDS ORDERED: bisacodyL 10 MG SUPP PR PRN (10:24)
[2024-08-21] MEDS: ATORVASTATIN 40 MG TAB PO SCH (12:07)
[2024-08-21] MEDS: MULTIVITAMIN TAB PO SCH (12:11)
[2024-08-21] MEDS: TAMSULOSIN HCL 0.4 MG CAP PO SCH (12:13)
[2024-08-21] MEDS: ASPIRIN 81 MG ECTAB PO SCH (12:13)
[2024-08-21] MEDS: EZETIMIBE 10 MG TAB PO SCH (12:15)
[2024-08-21] MEDS: LISINOPRIL/HCTZ 20/25MG 1 TAB PO SCH (12:15)
[2024-08-21] MEDS: DOCUSATE SODIUM 100 MG CAP PO SCH (12:16)
[2024-08-21] MEDS: METOPROLOL SUCC 50MG EXT REL TAB PO SCH (12:17)
[2024-08-21] MEDS: oxyCODONE HCL IR 5 MG TAB (IMMEDIATE RELEASE) PO PRN (12:29)
[2024-08-21] MEDS: KETOROLAC 30 MG/ML VIAL IV SCH (13:43)
--- NOTE | 2024-08-21 14:03 | Anesthesiology Progress Note ---
Date of Service August 21, 2024 Anesthesia Post Procedure Vital Signs Vital Signs: Temp Pulse Pulse Resp BP Pulse Ox O2 Del Method 08/21/24 13:49 36.5 C 99 H 18 123/67 91 Nasal Cannula 08/21/24 12:30 96 H 16 103/66 92 Nasal Cannula 08/21/24 11:30 91 H 18 116/60 93 Nasal Cannula 08/21/24 11:05 36.6 C 86 19 114/60 94 Nasal Cannula 08/21/24 10:35 89 22 108/59 L 92 Nasal Cannula 08/21/24 10:20 86 18 99/71 L 96 Nasal Cannula 08/21/24 10:05 90 17 118/58 L 96 Nasal Cannula 08/21/24 09:50 92 H 18 119/66 93 Nasal Cannula 08/21/24 09:35 86 19 123/61 97 Nasal Cannula 08/21/24 09:25 36.4 C L 94 H 21 101/52 L 92 Nasal Cannula 08/21/24 09:15 88 23 109/57 L 92 Oxymask 08/21/24 09:05 92 H 20 100/51 L 94 Oxymask 08/21/24 08:55 97 H 24 107/51 L 94 Oxymask 08/21/24 08:48 36.8 C 99 H 24 96/50 L 93 Oxymask 08/21/24 05:40 36.8 C 60 20 147/67 H 94 Room Air O2 Flow Rate 08/21/24 13:49 2 08/21/24 12:30 2 08/21/24 11:30 2 08/21/24 11:05 2 08/21/24 10:35 2 08/21/24 10:20 2 08/21/24 10:05 2 08/21/24 09:50 2 08/21/24 09:35 2 08/21/24 09:25 2 08/21/24 09:15 5 08/21/24 09:05 5 08/21/24 08:55 5 08/21/24 08:48 5 08/21/24 05:40 Pain Intensity Left Knee: Pain Intensity: 3 Transfer of Care Handoff Completed per policy Notes Mental Status: alert / awake / arousable and participated in evaluation Patient Amnestic to Procedure: Yes Nausea / Vomiting: adequately controlled Pain: adequately controlled Airway Patency, RR, SpO2: stable & adequate BP & HR: stable & adequate Hydration State: stable & adequate Neuraxial Anesthesia: was administered and sensory block is resolving Anesthetic Complications: no major complications apparent and Pt Satisfied with anesthetic care
[2024-08-21] MEDS: TRANEXAMIC ACID / 0.7% NACL 1,000 MG/100 ML BAG IV SCH (15:14)
[2024-08-21] MEDS: ceFAZolin 2000MG 2,000 MG/15 ML SYR IV SCH (15:36)
[2024-08-21] MEDS: HYDROmorphone INJ 0.5 MG/0.5 ML SYR IV PRN (16:11)
[2024-08-21] MEDS: ASCORBIC ACID 500 MG TAB PO SCH (16:43)
[2024-08-21] MEDS: SENNA 8.6 MG TAB PO SCH (20:20)
[2024-08-22 03:15] VITALS: RESP 16; TEMP 97.3; O2SAT 96
[2024-08-22 07:13] LABS: Hematocrit (blood only) 37.6 % (42.0-52.0); Hemoglobin 12.8 g/dl (14.0-18.0); Mean Corpuscular Hemoglobin 29.1 pg (25.0-34.0); Mean Corpuscular Volume 85.5 fL (80.0-100.0); Mean Platelet Volume 11.6 fL (9.4-12.4); Platelet Count 194 K/uL (130-400); RDW Coefficient of Variation 14.5 % (11.5-14.5); RDW Standard Deviation 44.6 fL (36.4-46.3)
[2024-08-22 07:34] LABS: BUN Creatinine Ratio 24.2 (10-20); Calcium 8.4 mg/dl (8.6-10.3); Creatinine Clr Calc Pharmacy 103.6 ml/min; Potassium 3.8 mmol/L (3.5-5.1)
[2024-08-22] MEDS: dexAMETHasone 10 MG in SYRINGE 0 ML IV SCH (07:35)
[2024-08-22] MEDS: APIXABAN 2.5 MG TAB PO SCH (07:37)
--- NOTE | 2024-08-22 08:57 | Orthopedic Progress Note ---
Date of Service August 22, 2024 Assessment & Plan (1) Status post total left knee replacement: Pain controlled. PT/OT wbat dvt prophylaxis: teds, scd's, eliquis discharge home today after PT. Follow up with Dr Padilla 2-3 weeks Subjective . 64 year old patient POD 1 from left tka. Doing well. Pain controlled. No other complaints. Review of Systems All systems reviewed & are unremarkable except as noted in HPI & below. Physical Exam .alert and oriented. NAD. VSS, labs reviewed Left leg: dressing clean, dry, intact. Motion about 0-90 degrees. Able to do SLR, DF, PF. NVI Results & Data Results & Data Laboratory Results . Diagnostic Findings . PG Care Time/CCT Total # of Minutes Spent Total Time Spent with Patient: Total time spent is greater than 50% in coordination of care (as documented) at patient's floor/unit and/or counseling patient: Coding Level of Care Code 56145 Post Operative Follow-Up Diagnoses Status post total left knee replacement Z96.652
[2024-08-22 09:38] VITALS: BP 123/67; PULSE 57
== END 2024-08-22 10:41 | disposition home health service (06) ==
LOC: ASU 05:14 → PACUINP 05:14 → 3N 13:34

== ENCOUNTER 2025-03-29 11:11 | Observation (INO) ==
--- NOTE | 2025-02-26 15:30 | PAT Medication Instructions ---
Medication Instructions Date of Service February 26, 2025 Home Medications Medication Instructions Recorded ezetimibe 10 mg tablet (Zetia) 10 mg PO QAM #90 tabs 03/07/24 atorvastatin 80 mg tablet (Lipitor) 80 mg PO QAM #90 tabs 09/10/24 lisinopril 20 1 tab PO QAM #90 tabs 09/10/24 mg-hydrochlorothiazide 25 mg tablet metoprolol succinate 50 mg 50 mg PO QAM #90 tabs 01/11/25 tablet,extended release 24 hr (Toprol XL) tirzepatide (weight loss) 7.5 7.5 mg (0.5 mL) subcut .weekly #2 01/14/ mg/0.5 mL subcutaneous pen injector mL apixaban 5 mg tablet (Eliquis) 5 mg PO BID #180 tabs 02/01/25 aspirin 81 mg tablet,delayed release 81 mg PO QAM ezetimibe 10 mg tablet (Zetia) 10 mg PO QAM atorvastatin 80 mg tablet (Lipitor) 80 mg PO QAM lisinopril 20 mg-hydrochlorothiazide 25 mg tablet 1 tab PO QAM metoprolol succinate 50 mg tablet,extended release 24 hr (Toprol XL) 50 mg PO QAM tirzepatide (weight loss) 7.5 mg/0.5 mL subcutaneous pen injector 7.5 mg (0.5 mL) subcut .weekly apixaban 5 mg tablet (Eliquis) 5 mg PO BID ASK your prescriber and surgeon aspirin 81 mg tablet,delayed release 81 mg PO QAM apixaban 5 mg tablet (Eliquis) 5 mg PO BID (From anesthesia perspective, Apixaban/Eliquis needs to be stopped 72 hours/3 days before surgery. Please check if okay with doctor that prescribes this to you) STOP 7 days prior to surgery tirzepatide (weight loss) 7.5 mg/0.5 mL subcutaneous pen injector 7.5 mg (0.5 mL) subcut .weekly DO NOT take the morning of surgery lisinopril 20 mg-hydrochlorothiazide 25 mg tablet 1 tab PO QAM Take morning of surgery With a small sip of water, OTHERWISE NOTHING TO EAT OR DRINK AFTER MIDNIGHT: ezetimibe 10 mg tablet (Zetia) 10 mg PO QAM atorvastatin 80 mg tablet (Lipitor) 80 mg PO QAM metoprolol succinate 50 mg tablet,extended release 24 hr (Toprol XL) 50 mg PO QAM Other Notes If you have any questions please call us at [phone] or [phone] or [phone] or [phone]
--- NOTE | 2025-03-04 08:26 | Anesthesiology Consultation ---
Date of Service March 04, 2025 Assessment & Plan (1) Encounter for pre-operative examination: Chart Review Chart Review: Acceptable Risk for Surgery and Patient seen in Pre Admission Testing - Patient is NOT an ideal OPJ candidate- currently 23 hour obs - Patient informed by nursing to stop Mounjaro 7 days prior to surgery. Last dose of Mounjaro scheduled 03/17/25. Will be off Mounjaro x 12 days prior to DOS on 03/29/25 Per PAT appt on 03/04/25, no recent illness/disease exposures, illness related symptoms, or recent illness/disease positive tests. Will leave to surgeon's discretion if preop Covid testing needed Per cardiology workload response re: hypotension and a fib on preop EKG 03/05/25= "Ok to proceed with surgery. Continue current toprol XL. OK to hold Eliquis for 3 days prior to procedure and resume when safe from a surgical standpoint. Instructed him to cut his current lisinopril-HCTZ in half (so take 10-12.5mg). " Cardiology office visit 11/06/24= "reports doing well since last seen... had a left knee replacement... plants to have right one done in near future... clinically in sinus rhythm. BP near goal... Continue current meds..." Left TKA 08/21/24= Done under SAB at L4-5 with 1 attempt Teaching & Discussion Pre-Anesthesia Teaching/Discussion Notes: Instructed NPO after midnight before surgery,except medications with 15 cc of water. Medication instructions provided according to the PAT guidelines. History Surgery Operation Date: 03/29/25 07:00 Proposed Procedures p Right Total Knee Arthroplasty - Ankur Padilla MD Height/Weight Height: 5 ft 8 in Weight: 107.7 kg Allergies Allergy/AdvReac Type Severity Reaction Status Date / Time No Known Allergies Allergy Verified 02/26/25 13:09 Medications Home Medications Medication Instructions Recorded Confirmed Last Taken aspirin 81 mg tablet,delayed 81 mg PO QAM 04/06/21 02/26/25 08/21/24 04:30 release ezetimibe 10 mg tablet (Zetia) 10 mg PO QAM #90 tabs 03/07/24 02/26/25 08/21/24 04:30 atorvastatin 80 mg tablet (Lipitor) 80 mg PO QAM #90 tabs 09/10/24 02/26/25 Unknown lisinopril 20 1 tab PO QAM #90 tabs 09/10/24 02/26/25 Unknown mg-hydrochlorothiazide 25 mg tablet metoprolol succinate 50 mg 50 mg PO QAM #90 tabs 01/11/25 02/26/25 Unknown tablet,extended release 24 hr (Toprol XL) tirzepatide (weight loss) 7.5 7.5 mg (0.5 mL) subcut .weekly #2 01/14/25 02/26/25 Unknown mg/0.5 mL subcutaneous pen injector mL apixaban 5 mg tablet (Eliquis) 5 mg PO BID #180 tabs 02/01/25 02/26/25 Unknown Past Medical History Medical History (Updated 03/04/25 @ 08:44 by Olive Batista PA-C) Atrial fibrillation Taking Eliquis Follows with Dr. Márquez CAD (coronary artery disease) STEMI 12/2013 with JONO to mid LAD Moderate nonobstructive CAD 12/2019, 50% mid LAD after stent, 50% ostial RC [place] [facility] [place] History of COVID-19 03/2021- diarrhea, body aches, chills, cough, SOB, loss of taste/smell; reports lingering cough - resolved Hx of myocardial infarction 2013 > s/p 1 JONO to LAD Hypertension Osteoarthritis Exercise / Class Metabolic Activity II 4-5 Yardwork/Stairs/Walk up hill (one flight of stairs- no chest pain or SOB ) Past Family History Family History Father Abdominal aortic aneurysm Cardiac disorder Hypertension Myocardial infarction Aunt Breast cancer Other No family history of adverse response to anesthesia Denies family history of Ovarian cancer Prostate cancer Colorectal cancer Past Surgical History Surgical History (Updated 03/04/25 @ 08:44 by Olive Batista PA-C) History of appendectomy History of cardiac cath 2019- no stents 2013 > stents x1 History of cholecystectomy History of esophagogastroduodenoscopy (EGD) History of repair of left rotator cuff (08/2018) Left shoulder arthroscopy, RCR (09/04/18): Grade 4 view with MAC #4. Could not see beyond epiglottis on DVL > changed to Glidescope Grade 1 view with glidescope easy full view, ETT easily passed. S/P coronary artery stent placement (2013) x2 (2013) Status post left knee replacement (07/2024) Past Anesthesia History No Hx of Anesthesia Complications and No Family Hx of Anesthesia Complications History of PONV No Hx of PONV and No Hx of Motion Sickness Social History Smoking Status: Never smoker tobacco type: smokeless tobacco Do You Dip or Chew Tobacco: Yes (advised - chews 1/2 can/day) Hx Alcohol Use: Yes Alcohol type: beer and hard liquor alcohol intake frequency: a few times a month Hx Substance Use: No substance use type: does not use Review of Systems Patient denies chest pain, shortness of breath, dyspnea on exertion, reflux, cough, wheezing, palpitations. No hx of seizures, stroke, apnea/snoring. No hx of blood clots or blood transfusions Physical Exam Vital Signs VITALS BP 94/64 (manual- has lost weight with diet and Tirzepatide - occ dizziness but no current issues- made education sales consultant aware- cardio will have patient to start taking lisinopril-HCTZ 10-12.5mg daily (half of previous dose)) P 90 TEMP 97.6 SP02 96% RESP 16 Constitutional no acute distress ENMT Mouth: no TMJ clicking Thyromental Distance: > or= 3.5 Finger Breadths (3.5) Mallampati Class: III Missing all top teeth Missing bottom side teeth/molars Neck neck extension not limited Respiratory normal respiratory effort; no respiratory distress Auscultation: lungs clear to auscultation bilaterally; no wheezes Cardiovascular Heart Sounds: no murmur Vessels: no carotid bruit Irregularly irregular - rate controlled Musculoskeletal Spine: no pain with cervical ROM Extremities: extremities normal to inspection Psychiatric Orientation: alert Lab Results Anesthesia Preop Results Results Anesthesia Widget: WBC 8.05 K/ul (4.8-10.8) 03/04/25 Hgb 15.4 g/dl (14.0-18.0) 03/04/25 Hct 44.5 % (42.0-52.0) 03/04/25 Plt 221 K/uL (130-400) 03/04/25 Na 138 mmol/L (136-145) 03/04/25 K 3.4 mmol/L (3.5-5.1) L 03/04/25 Cl 104 mmol/L (98-107) 03/04/25 CO2 28 mmol/L (21-32) 03/04/25 BUN 17 mg/dl (6-23) 03/04/25 Creat 0.79 mg/dl (0.6-1.4) 03/04/25 Glucose Level 105 mg/dl (70-99(Fasting)) H 03/04/25 PT 11.2 Seconds (9.0-12.0) 03/04/25 PTT 30 Seconds (21-31) 03/04/25 INR 1.0 (0.9-1.1) 03/04/25 Blood Type B Positive 03/04/25 Antibody Screen NEGATIVE 03/04/25 Testing Electrocardiogram Date: 03/04/25 Findings: + AFIB @ (86bpm) When compared to EKG from Aug 03, 2024- a fib has replaced SR, vent has increased by 28bpm, T wave amplitude has decreased in lateral leads per cardio Chest X-Ray Date: 08/03/24 Findings: + NAD Echocardiogram Date: 04/20/21 EF: 55 to 60% LV Function: normal RWMA: + none Other Findings: + LVH (Mild/concentric) Valvular Disease: + no significant valvular disease Normal LV size. Normal RV size and function. Normal estimated RA and PA pressures. Compared to study from 01/23/2014trial fibrillation/flutter is new. No other significant changes. Cardiac Catheterization Date: 12/26/19 LM -Short, angiographically normal LAD -medium caliber vessel, proximal to mid luminal irregularities, mid segment stent widely patent, 50% hazy stenosis just distal to prior stent. Distal vessel with luminal irregularities and wraps around apex. Medium caliber first diagonal with mild diffuse disease. Second diagonal without significant disease. Circumflex -medium caliber vessel, luminal irregularities. Medium caliber OM 2 with 30% proximal disease. RCA -dominant, large caliber, 50% ostial stenosis. No waveform dampening with catheter engagement. Summary: 1. Moderate multivessel coronary artery disease - Widely patent mid LAD stent - 50-60% mid LAD eccentric stenosis just after prior stent - 50% calcified ostial RCA stenosis (FFR 0.91). Recommend medical management.
--- NOTE | 2025-03-19 20:01 | History & Physical Report ---
Date of Service March 19, 2025 Assessment & Plan (1) Right knee DJD: 64-year-old gentleman 7 months out from left knee replacement with underlying atrial fibrillation with advanced right knee DJD. He has failed conservative measures. He is happy with the left knee and would like to have his right knee replaced. Plan: Shalonda taken to the operating room do a right total knee replacement. The risks and benefits procedure were explained. Informed consent was obtained. He will hold his Eliquis 3 days preop. He is planned to be discharged home using home health. Knows to hold his Mounjaro at least a week ahead of time. (2) Status post total left knee replacement: (3) Atrial fibrillation: (4) CAD (coronary artery disease): (5) Hypertension: History of Present Illness Chief Complaint: . Right knee pain discomfort and stiffness. Primary Care Provider: Emigdio Longoria MD . The patient is a 64-year-old gentleman who presents now for surgical treatment of his right knee. Is about 7 months out from a left knee replacement and done quite well. Happy with the left knee. He continues to be bothered by right knee pain. Has been through extensive conservative treatment which become less successful over time. Shots do not help much. Happy with the left knee and would like to have his right knee fixed. Patient has a history of atrial fibrillation on chronic Eliquis. Allergies Allergy/AdvReac Type Severity Reaction Status Date / Time No Known Allergies Allergy Verified 02/26/25 13:09 Home Medications Medication Instructions Recorded Confirmed Type aspirin 81 mg tablet,delayed 81 mg PO QAM 04/06/21 02/26/25 History release atorvastatin 80 mg tablet (Lipitor) 80 mg PO QAM #90 tabs 09/10/24 02/26/25 Rx lisinopril 20 1 tab PO QAM #90 tabs 09/10/24 02/26/25 Rx mg-hydrochlorothiazide 25 mg tablet metoprolol succinate 50 mg 50 mg PO QAM #90 tabs 01/11/25 02/26/25 Rx tablet,extended release 24 hr (Toprol XL) tirzepatide (weight loss) 7.5 7.5 mg (0.5 mL) subcut .weekly #2 01/14/25 02/26/25 Rx mg/0.5 mL subcutaneous pen injector mL apixaban 5 mg tablet (Eliquis) 5 mg PO BID #180 tabs 02/01/25 02/26/25 Rx ezetimibe 10 mg tablet (Zetia) 10 mg PO QAM #90 tabs 03/14/25 Rx Past Med/Surg History Problem List Encounter for pre-operative examination Status post total left knee replacement Degenerative arthritis of knee, bilateral Right knee DJD Atrial fibrillation CAD (coronary artery disease) Hypertension (Chronic) Medical History Hypertension Hx of myocardial infarction 2013 > s/p 1 JONO to LAD CAD (coronary artery disease) STEMI 12/2013 with JONO to mid LAD Moderate nonobstructive CAD 12/2019, 50% mid LAD after stent, 50% ostial RC [place] [facility] [place] Atrial fibrillation Taking Eliquis Follows with Dr. Márquez Osteoarthritis History of COVID-19 03/2021- diarrhea, body aches, chills, cough, SOB, loss of taste/smell; reports lingering cough - resolved Surgical History Status post left knee replacement (07/2024) S/P coronary artery stent placement (2013) x2 (2013) History of esophagogastroduodenoscopy (EGD) History of repair of left rotator cuff (08/2018) Left shoulder arthroscopy, RCR (09/04/18): Grade 4 view with MAC #4. Could not see beyond epiglottis on DVL > changed to Glidescope Grade 1 view with glidescope easy full view, ETT easily passed. History of appendectomy History of cholecystectomy History of cardiac cath 2019- no stents 2013 > stents x1 Family History Father Abdominal aortic aneurysm Cardiac disorder Hypertension Myocardial infarction Aunt Breast cancer Other No family history of adverse response to anesthesia Denies family history of Ovarian cancer Prostate cancer Colorectal cancer Social History Smoking Status: Never smoker Tobacco Type: Smokeless Tobacco (Dip or Chew) Second Hand Exposure: No; Do You Dip or Chew Tobacco: Yes (advised - chews 1/2 can/day); Hx Alcohol Use: Yes Alcohol type: beer and hard liquor Hx Substance Use: No Preferred Language: [place] Communication Ability: Effective Licensed Massage Therapist Required: No Beliefs That Will Affect Care: None Current Living Situation: Spouse Feels Safe at Home: Yes Assistive Devices: Glasses Review of Systems All systems reviewed & are unremarkable except as noted in HPI & below. Physical Exam . Physical examination reveals a pleasant middle-age male who looks in pretty good health. Examination of both knees reveal patient ambulates independently. Examination of the right knee reveals a slight varus alignment to his knee. Slight bony perching medially. Range of motion is 5-1 20. No pain with hip motion. He is neurologically intact. Examination left knee reveals well-healed incision. Minimal swelling. Range of motion 0-1 20. Good straight leg raise. Constitutional WD/WN, vitals as above Respiratory normal respiratory effort, lungs clear to auscultation Cardiovascular RRR, no murmur, no edema Gastrointestinal (Abdomen) normal bowel sounds, soft, nontender, no hepatosplenomegaly Results & Data Results & Data Laboratory Results . Diagnostic Findings . X-rays of the right knee were reviewed. Shows advanced right knee DJD. Complete loss of medial joint space. Subchondral sclerosis. The left knee replacement looks in good position without problems. PG Care Time/CCT Total # of Minutes Spent Total Time Spent with Patient: Total time spent is greater than 50% in coordination of care (as documented) at patient's floor/unit and/or counseling patient: Coding Level of Care Code None Diagnoses Right knee DJD M17.11 Status post total left knee replacement Z96.652 Atrial fibrillation I48.91 CAD (coronary artery disease) I25.10 Hypertension I10
[~2025-03-29 11:11] MED LIST: BUPIVACAINE 0.5 % 5 MG/1 ML PF 10ML VIAL ONE; ROPIVACAINE 0.5% 5 MG/ML 30 ML VIAL ONE
[2025-03-29] MEDS: LR 60ML/HR IV SCH (11:49)
[2025-03-29] MEDS: LR 500ML BOLUS, THEN 15ML/HR IV SCH (11:49)
[2025-03-29] MEDS: FAMOTIDINE 20 MG TAB PO SCH (11:50)
[2025-03-29] MEDS: ACETAMINOPHEN 500 MG TAB PO SCH ×2 (11:50→21:15)
[2025-03-29] MEDS: METOCLOPRAMIDE HCL 10 MG TABLET PO SCH (11:50)
[2025-03-29] MEDS: CeleBREX 200 MG CAP PO SCH (11:50)
[2025-03-29] MEDS: dexAMETHasone**PF** 10 MG/ML VIAL IV SCH (11:50)
[2025-03-29] MEDS ORDERED: ONDANSETRON INJ 2 MG/ML 2 ML VIAL IV PRN ×2 (12:14→18:03)
[2025-03-29] MEDS ORDERED: ATROPINE SULFATE 0.1 MG/ML 10ML SYR IV PRN (12:14)
--- NOTE | 2025-03-29 13:01 | History & Physical Bridge Note ---
Date of Service March 29, 2025 History & Physical Bridge Note I have examined the patient, reviewed the History & Physical and in the interval since the performance of the History & Physical I have noted the following changes of clinical significance: no changes noted
[2025-03-29] MEDS ORDERED: MIDAZOLAM HCL 1 MG/ML 2ML VIAL ONE (13:13)
[2025-03-29] MEDS ORDERED: PHENYLEPHRINE HCL 10 MG/ML VIAL ONE (14:10)
[2025-03-29] MEDS ORDERED: ePHEDrine sulfate 50 MG/5 ML SYR ONE ×2 (14:10→16:35)
[2025-03-29] MEDS ORDERED: PROPOFOL IV EMULSION 10 MG/ML 100 ML VIAL IV ONE (14:10)
[2025-03-29] MEDS: ORTHO JOINT ANESTHETIC ONE (14:19)
[2025-03-29] MEDS: ROPIV 0.5% 246mg, Ketorolac 30mg, EPINEPHrine 0.5mg in NSS INFIL SCH (14:57)
--- NOTE | 2025-03-29 15:28 | Operative Report ---
PG Post Operative Report Pre & Post Diagnosis Operation Date: 03/29/25 12:30 Pre-Op Diagnosis: Right knee degenerative joint disease Post-Op Diagnosis: Right knee degenerative joint disease I identified the patient and participated in the time-out.: Yes Procedure Operation Date: 03/29/25 12:30 Actual Procedures p Right Total Knee Arthroplasty(Right) - Ankur Padilla MD Surgeon Ankur Padilla MD Intellectual Property Paralegal Augustine Ziegler PA-C Estimated Blood Loss 50 Findings Consistent with Post-Op Diagnosis Operative findings were advanced right knee medial compartment DJD. Extensive grade 4 [id number] disease and eburnation of the entire medial compartment. He had a varus deformity to his knee. Moderate-sized knee joint effusion. Specimens Right knee sent for pathology. Anesthesia Type Spinal MAC Complications none Disposition Accompanied Patient To Recovery: No Indications Patient is a 64-year-old gentleman with a long history of bilateral knee pain discomfort which gradually got worse over time. Failed all conservative measures. He had his left knee replaced about 7 months ago and is doing well with this. He continued to be limited by right knee pain, discomfort, and swelling. He elected proceed with right total knee arthroplasty. Description of Procedure Operative implants consist of: 1. Biomet Vanguard size 70 right posterior stabilized femoral component. 2. Biomet size 71 tibial tray. 3. 10 mm posterior stabilized polyethylene insert. 4. 31 x 8 all poly patella. The patient was taken to the op room, identified, and placed on the operating table in the supine position. All contact areas were appropriately padded. IV antibiotics were provided by anesthesia team. A spinal anesthetic and adductor canal block had been provided in the holding area. Right thigh tourniquet was then placed. The right lower extremity was then prepped and draped in usual sterile fashion. The right leg was elevated and exsanguinated with use of an Esmarch and tourniquet placed at 300 mmHg. An anterior approach of the right knee was then performed through a longitudinal incision centered over the patella. Sharp dissection was Through subcutaneous tissue down to the extensor mechanism. A medial parapatellar arthrotomy incision was made. Some subperiosteal dissection was carried out medially. The fat pad was dissected from Neath patella tendon. Lateral patellofemoral ligament was released. Patella subluxated laterally and knee was flexed. The osteophytes taken off distal femur. The ACL and PCL were then released from distal femur and the tibia subluxated anteriorly. The external tibial alignment jig was then placed on the anterior face of the tibia and adjusted 14 mm medially. Proximal tibial cut was made remove about a chidi meter or 2 of bone for the medial side. Some osteophytes taken off medially. Tibia sized to size 71. Attention drawn the femur. The distal femur was entered with a sharp drill. Intramedullary canal was suction. A right 6 degree valgus cutting guide was placed. Distal femoral cutting block was pinned in place. Distal femoral cut was made take an additional 3 mm of bone off distal femur. The femur was then sized to a size 70. The AP cutting block was pinned parallel to the epicondylar axis which was 3 degrees of external rotation. The anterior cut, anterior chamfer, posterior cut, posterior chamfer cuts were made. The box cutting guide was placed in a just slight laterally. The box cut was made. The knee was flexed. The remnants of the medial and lateral menisci were excised. The osteophytes taken off the posterior aspect of femur. A trial femoral component was placed. The tibial tray was pinned in Gretchen external rotation and the drill and stem punch were used to create defect in proximal tibia for the tibial tray. The knee was then trialed and the 10 mm insert fit most appropriately. Attention drawn to the patella. The patella was cleaned of all soft tissue. Patella thickness measured 24 mm in thickness was cut down to 15. Was sized to a size 31 patella. The lug holes were drilled for 31 patella. Lateral osteophytes removed. Patella button was placed. Knee was taken through range of motion patella tracked nicely with no thumbs test. Attention jointer placed the permanent components. Nupathe all trial components were removed. Bone plug was placed into distal femur limit blood loss. Double batch Palacos G cement was mixed. A Biomet Vanguard size 70 right posterior by femoral component, size 71 tibial tray, 10 mm posterior stabilized polyethylene insert, and a 31 x 8 all poly patella then cemented in place. The knee was brought out into full extension until the cement hardened. Final cement check was then performed. Pericapsular tissues were injected with total 100 cc of Ortho mix. The patient did receive 1 g of tranexamic acid. The tourniquet was then let down for final tourniquet time 55 minutes. Hemostasis assured with electrocautery. Extensor Meclomen closed with combination 1 PDS suture #1 Vicryl suture in a [id number] fashion. Extensor Meclomen checked found to be intact. Subcutaneous tissue then closed with 2 Dexon suture in a buried interrupted fashion skin was closed skin jania. Leg was then cleaned and dried and a sterile dressing with Xeroform, 4 fours, sterile cast padding, Arslan bandage were applied. Patient then transferred to the recovery room in stable condition. Patient tolerated the procedure well and there were no complications. Augustine Ziegler, my physician magistrate assistant, was present for the entire procedure. His assistance was required for proper patient positioning, prepping and draping, surgical exposure, retraction, performed the technical details of the operation, placement implants, closure of the incision site and placement of postoperative sterile bandage. I attest to the content of the Intraoperative Record and any orders documented therein. Any exceptions are noted below.
--- NOTE | 2025-03-29 15:35 | XRay Report ---
XR knee RT 1 or 2V routine CLINICAL HISTORY: Surgical Post Op COMPARISON: 03/06/2021 FINDINGS: Right knee prosthesis shows no hardware complication. Skin jania are present. There is e xpected soft tissue gas. IMPRESSION: Unremarkable postoperative exam. ACT 112: Negative or not required by law. Electronically signed by: Bryn Barr M.D. 03/29/2025 3:33 PM
[2025-03-29] MEDS ORDERED: ALUMINUM/MAGNESIUM SUSP 30 ML UDC PO PRN (18:03)
[2025-03-29] MEDS ORDERED: NALOXONE HCL 0.4 MG/1 ML VIAL/CARP IV PRN (18:03)
[2025-03-29] MEDS ORDERED: MAGNESIUM HYDROXIDE SUSP 30 ML UDC PO PRN (18:03)
[2025-03-29] MEDS ORDERED: METOCLOPRAMIDE HCL INJ 5 MG/ML 2 ML VIAL IV PRN (18:03)
[2025-03-29] MEDS ORDERED: HYDROmorphone INJ 0.5 MG/0.5 ML SYR IV PRN (18:03)
[2025-03-29] MEDS: SODIUM CHLORIDE 0.9% 1,000 ML IV SCH (18:11)
[2025-03-29] MEDS: KETOROLAC 30 MG/ML VIAL IV SCH (18:38)
--- NOTE | 2025-03-29 18:57 | Anesthesiology Progress Note ---
Date of Service March 29, 2025 Anesthesia Post Procedure Vital Signs Vital Signs: Temp Pulse Pulse Resp BP BP Pulse Ox 03/29/25 18:36 98.6 F 109 H 18 108/66 91 03/29/25 18:25 97.9 F 104 H 18 103/59 L 94 03/29/25 17:40 100 H 19 99/60 L 97 03/29/25 17:30 100 H 16 107/61 95 03/29/25 17:20 97.9 F 94 H 15 94/57 L 96 03/29/25 17:10 94 H 16 91/53 L 97 03/29/25 17:00 98 H 15 83/59 L 93 03/29/25 16:50 97 H 13 82/56 L 93 03/29/25 16:40 90 16 95/57 L 97 03/29/25 16:30 91 H 16 80/49 L 95 03/29/25 16:20 84 16 87/51 L 97 03/29/25 16:10 95 H 20 73/52 L 95 03/29/25 16:00 93 H 14 88/51 L 95 03/29/25 15:50 82 16 88/56 L 95 03/29/25 15:40 97 H 12 79/56 L 97 03/29/25 15:30 98 H 16 87/59 L 98 03/29/25 15:21 96.8 F L 109 H 20 93/48 L 96 03/29/25 11:44 97.7 F 73 18 108/73 96 O2 Del Method O2 Flow Rate 03/29/25 18:36 Room Air 03/29/25 18:25 Room Air 03/29/25 17:40 Nasal Cannula 2 03/29/25 17:30 Nasal Cannula 2 03/29/25 17:20 Nasal Cannula 2 03/29/25 17:10 Nasal Cannula 2 03/29/25 17:00 Nasal Cannula 2 03/29/25 16:50 Nasal Cannula 2 03/29/25 16:40 Nasal Cannula 2 03/29/25 16:30 Nasal Cannula 2 03/29/25 16:20 Nasal Cannula 2 03/29/25 16:10 Room Air 03/29/25 16:00 Room Air 03/29/25 15:50 Room Air 03/29/25 15:40 Oxymask 4 03/29/25 15:30 Oxymask 6 03/29/25 15:21 Oxymask 6 03/29/25 11:44 Room Air Transfer of Care Handoff Completed per policy Notes Mental Status: alert / awake / arousable and participated in evaluation Patient Amnestic to Procedure: Yes Nausea / Vomiting: adequately controlled Pain: adequately controlled Airway Patency, RR, SpO2: stable & adequate BP & HR: stable & adequate Hydration State: stable & adequate Neuraxial Anesthesia: was administered and sensory block is resolving Anesthetic Complications: no major complications apparent and Pt Satisfied with anesthetic care Notes: hypotension in pacu, likely related to spinal, fluid bolus and ephedrine given with resolution.
[2025-03-29 19:20] VITALS: RESP 16
[2025-03-29] MEDS: ASCORBIC ACID 500 MG TAB PO SCH (19:23)
[2025-03-29] MEDS ORDERED: SENNA 8.6 MG TAB PO SCH (21:00)
[2025-03-29] MEDS: DOCUSATE SODIUM 100 MG CAP PO SCH (21:14)
[2025-03-29] MEDS: SENNA 8.6 MG TAB PO SCH (21:14)
[2025-03-29] MEDS: TRANEXAMIC ACID / 0.7% NACL 1,000 MG/100 ML BAG IV SCH (21:19)
[2025-03-30 06:24] LABS: Hematocrit (blood only) 41.1 % (42.0-52.0); Hemoglobin 13.9 g/dl (14.0-18.0); Mean Corpuscular Hemoglobin 29.7 pg (25.0-34.0); Mean Corpuscular Volume 87.8 fL (80.0-100.0); Platelet Count 227 K/uL (130-400); RDW Standard Deviation 48.9 fL (36.4-46.3); Red Blood Count 4.68 M/uL (4.70-6.10); White Blood Count 18.74 K/ul (4.8-10.8)
[2025-03-30 06:52] LABS: Anion Gap 6.0 (3-11); Blood Urea Nitrogen 19.0 mg/dl (6-23); Calcium 8.8 mg/dl (8.6-10.3); Carbon Dioxide 24.0 mmol/L (21-32); Chloride 106.0 mmol/L (98-107); Creatinine Clr Calc Pharmacy 94.8 ml/min; Glucose 133.0 mg/dl (70-99(Fasting)); Potassium 3.8 mmol/L (3.5-5.1); Sodium 136.0 mmol/L (136-145)
--- NOTE | 2025-03-30 07:32 | Orthopedic Progress Note ---
Date of Service March 30, 2025 Assessment & Plan (1) Status post right knee replacement: Plan: 64-year-old gentleman postop day 1 from right knee replacement doing reasonably well. Pains controlled. He is neurologically intact. Plan: 1. DVT prophylaxis including thigh-high teds, SCDs, and will start him back on his Eliquis at a prophylactic dose today and resume normal dose tomorrow. 2. PT/OT. Weight-bear as tolerated. Right total knee protocol. 3. Pain control. Doing well with current pain regimen. 4. Disposition. Plan is discharged home with some home health later today. Admission and Anticipated Discharge Date Admission Date: March 29, 2025 Subjective 64-year-old gentleman postop day 1 from right knee replacement. He is doing pretty well. He is required some pain medicine overnight. No chest pain or shortness of breath. He is hoping to go home today. Physical Exam Physical Exam: Physical examination is a pleasant middle-age male. Days lying in bed looks pretty comfortable this morning. Had to wake him. Examination of the right leg reveals the dressing be in place. No signal drainage. He can do a straight leg raise. Can dorsiflex and plantarflex his foot appropriately. He is neurologically intact. Respiratory: normal respiratory effort, lungs clear to auscultation Cardiovascular: RRR, no murmur, no edema Gastrointestinal (Abdomen): normal bowel sounds, soft, nontender, no hepatosplenomegaly Results & Data Vital Signs (Past 12 Hours) Vital Signs Temp Pulse Resp BP BP Pulse Ox O2 Del Method 03/30/25 02:43 36.5 C 96 H 16 105/62 93 Room Air 03/29/25 22:21 36.6 C 102 H 16 103/66 102 H Room Air 03/29/25 20:46 36.7 C 106 H 16 101/59 L 93 Room Air Laboratory Results Hemoglobin is 13.9. Hematocrit 41.1. Electrolytes are stable.
[2025-03-30 08:01] VITALS: PULSE 69; TEMP 97.5; O2SAT 96
[2025-03-30] MEDS: ATORVASTATIN 40 MG TAB PO SCH (08:17)
[2025-03-30] MEDS: EZETIMIBE 10 MG TAB PO SCH (08:17)
[2025-03-30] MEDS: ASPIRIN 81 MG ECTAB PO SCH (08:17)
[2025-03-30] MEDS: METOPROLOL SUCC 50MG EXT REL TAB PO SCH (08:18)
[2025-03-30] MEDS: TAMSULOSIN HCL 0.4 MG CAP PO SCH (08:18)
[2025-03-30] MEDS: MULTIVITAMIN TAB PO SCH (08:18)
[2025-03-30] MEDS: LISINOPRIL/HCTZ 20/25MG 1 TAB PO SCH (08:19)
[2025-03-30] MEDS: dexAMETHasone 10 MG in SYRINGE 0 ML IV SCH (08:22)
[2025-03-30 13:32] VITALS: BP 105/62
[2025-03-30] MEDS ORDERED: APIXABAN 2.5 MG TAB PO SCH (21:00)
== END 2025-03-30 14:12 | disposition home health service (06) ==
LOC: ASU 11:11 → 3E 11:11